=== PATIENT | female | born 2000 | race Caucasian/White ===

== ENCOUNTER → 2022-06-07 11:53 | Outpatient (CLI) | payer OTHER, SELFPAY ==
[2022-06-07 13:56] LABS: HCG,Quantitative 725 mIU/ml (0-5.42)
== END ==
PROVIDERS: Visit Provider Obstetrics & Gynecology
DX: N92.6 Irregular menstruation, unspecified (principal)
CPT/HCPCS: 36415; 84702

== ENCOUNTER 2022-06-12 01:09 | Emergency (ER) | payer OTHER, SELFPAY ==
[2022-06-12 01:10] VITALS: BP 152/87; PULSE 108; RESP 16; TEMP 36.8; O2SAT 100; BMI 33.5
[2022-06-12 01:28] VITALS: BMI 33.5
[2022-06-12 01:49] LABS: Microscopic, Urine URINE MICROSCOPIC (MICROSCOPIC)
[2022-06-12 01:54] LABS: Basophils # 0.1 K/mm3 (0-0.2); Basophils % 0.8 % (0.1-2.0); Eosinophils # 0.1 K/mm3 (0.0-0.4); Hematocrit 41.1 % (37.0-47.0); Hemoglobin 13.9 g/dL (12.2-16.2); Lymphocytes # 2.6 K/mm3 (0.7-4.5); Lymphocytes % 23.8 % (10-50); Mean Corpuscular HGB Conc 33.9 g/dL (31.8-35.4); Mean Corpuscular Hemoglobin 27.6 pg (27.0-31.2); Mean Corpuscular Volume 81.7 fl (81-99); Mean Platelet Volume 7.9 fl (7.4-10.4); Monocytes # 0.6 K/mm3 (0.1-1.0); Monocytes % 5.8 % (1.7-9.3); Neutrophils # 7.4 K/mm3 (1.8-7.8); Neutrophils % 68.6 % (37.0-80.0); Platelet Count 382 K/mm3 (142-424); Red Blood Count 5.03 M/mm3 (4.20-5.40); Red Cell Distribution Width 14.5 % (11.5-17.5); White Blood Count 10.7 K/mm3 (4.8-10.8)
[2022-06-12 02:05] LABS: HCG Qualitative, Serum Positive (Negative)
[2022-06-12 02:07] LABS: Appearance,Urine CLEAR (Clear); Bilirubin,Urine Negative (Negative); Blood, Urine 2+ (Negative); Chloride 108 mmol/L (98-107); Color,Urine YELLOW (Yellow); Glucose,Urine (UA) Negative (Negative); Ketones,Urine Negative (Negative); Leukocyte Esterase,Urine Negative (Negative); Nitrate,Urine Negative (Negative); Protein,Urine Negative (Negative); Specific Gravity, Urine >= 1.030 (1.005-1.030); Urobilinogen,Urine 0.2 EU/dl (0.2)
[2022-06-12 02:08] LABS: Sodium 138 mmol/L (136-145)
[2022-06-12 02:09] LABS: Amylase 78 U/L (30-110); Lipase 105 U/L (23-300)
[2022-06-12 02:10] LABS: Alanine Aminotransferase 20 U/L (12-78); Albumin Level 4.2 g/dl (3.5-5.0); Alkaline Phosphatase 86 U/L (38-126); Aspartate Amino Transferase 27 U/L (14-36); Bilirubin,Total 0.3 mg/dl (0.2-1.3); Blood Urea Nitrogen 7 mg/dl (7-17); Creatinine Clearance Estimated 201 mL/min (50-200); Estimated Glomerular Filt Rate 126 ml/min (>60); GFR (African American) 153 ML/MIN (>60)
[2022-06-12 02:11] LABS: Albumin/Globulin Ratio 1.4 (1.1-1.8); Carbon Dioxide 21 mmol/L (22.0-30.0); Total Protein,Serum 7.2 g/dl (6.3-8.2)
[2022-06-12 02:14] LABS: RBC,Urine Occasional #/hpf (0-3)
--- NOTE | 2022-06-12 02:18 | US_ITS ---
PROCEDURE INFORMATION: Exam: US , Transvaginal Exam date and time: 06/12/2022 3:13 AM Age: 21 years old Clinical indication: Lmp or gestational age (in weeks): Lmp 04/29/2022; Other: Light spotting seen tonight; ; Additional info: Bleeding, 4-5 wk TECHNIQUE: Imaging protocol: Real-time transvaginal obstetrical ultrasound of the maternal pelvis with image documentation. Transvaginal imaging was used for better evaluation of the fetus, adnexa, and/or cervix. COMPARISON: No relevant prior studies available. FINDINGS: Gestation: No definite pole or yolk sac identified within the gestational sac at this time, possibly secondary to early gestational age. BIOMETRY: Mean sac diameter: Single intrauterine gestational sac, with mean sac diameter measuring 4.5 mm, which is too small for estimation of gestational age. MATERNAL: Cervix: Cervical nabothian cyst. Right ovary/adnexa: Right ovary normal in appearance and measures 1.6 x 1.2 x 1.0 cm. Normal right ovarian vascularity. Left ovary/adnexa: Left ovary normal in appearance and measures 1.6 x 1.1 x 1.2 cm. Normal left ovarian vascularity. Intraperitoneal space: Small amount of free fluid within the cul-de-sac. IMPRESSION: Probable early intrauterine gestational sac, without visible pole or yolk sac. Gestational sac is too small for estimation of gestational age. Recommend continued beta HCG measurements and follow-up ultrasound as indicated.
--- NOTE | 2022-06-12 02:27 | PC.NURSE ---
Called radiology to notify to need for transvag u/s (OB). Lashanda is on-call and was notified
[2022-06-12 02:28] LABS: HCG,Quantitative 449 mIU/ml (0-5.42)
--- NOTE | 2022-06-12 02:45 | PC.NURSE ---
Pt &SO updated on POC and estimated wait time for u/s tech and reading. SO asking for IV to be removed from pt, updated that if there is a need for a procedure, medication, or surgery we would need to place another IV. They stated it was ok to leave at this time. SO concerned that u/s would be male, educated that a female radiology practitioner assistant will be performing u/s. [place] offered, refused again at this time.
[2022-06-12 02:52] LABS: Anion Gap 12.6 mEq/L (5-15); Calcium 8.9 mg/dl (8.4-10.2); Glucose 104 mg/dl (74-100); Potassium 3.6 mmoL/L (3.5-5.1)
--- NOTE | 2022-06-12 03:07 | PC.NURSE ---
pt taken for u/s at this time via wheelchair, SO accompanied pt to u/s
--- NOTE | 2022-06-12 03:40 | PC.NURSE ---
pt back from u/s
--- NOTE | 2022-06-12 05:02 | HMH.EDPREG ---
ED Disposition Clinical Impression: Qualifiers: Weeks of gestation: less than 8 weeks Qualified Code(s): Z3A.01 - Less than 8 weeks gestation of Disposition: Home, Self-Care Condition on Discharge: Fair Instructions: Threatened Miscarriage Additional Instructions: dory pompa today Referrals: Provider,Referral, [Primary Care Provider] - Priya Harvey DO [Physician] - - Critical Care Critical Care Time: No Attestation: On 06/12/22, the high probability of a clinically significant, sudden or life threatening deterioration of the following system(s) required my full and direct attention, intervention and personal management. The time I documented below is in addition to time spent performing reported procedures but includes the following listed in this critical care notation. Medical Decision Making - Medical Records Medical records reviewed: Yes: I reviewed the patient's medical records. - [place] Inquiry Pt receiving controlled substance: No Vital Signs: 06/12/22 01:10 Temperature 98.3 F Temperature Source Oral Pulse Rate [Left] 108 H Respiratory Rate 16 Blood Pressure [Right Arm] 152/87 H Blood Pressure Mean [Right Arm] 108 02 Sat by Pulse Oximetry 100 Oxygen Delivery Method Room Air - Lab Data Lab results reviewed: Yes: I reviewed the patient's lab results. Lab Results 06/12/22 01:25: Urine Color Yellow, Urine Appearance Clear, Urine pH 6.0, Ur Specific [place] >= 1.030, Urine Protein Negative, Urine Glucose (UA) Negative, Urine Ketones Negative, Urine Blood 2+, Urine Nitrate Negative, Urine Bilirubin Negative, Urine Urobilinogen 0.2, Ur Leukocyte Esterase Negative, Urine RBC Occasional, Urine WBC None, Ur Squamous Epith Cells 3-5, Urine Bacteria None 06/12/22 01:25: WBC 10.7, RBC 5.03, Hgb 13.9, Hct 41.1, MCV 81.7, MCH 27.6, MCHC 33.9, RDW 14.5, Plt Count 382, MPV 7.9, Neut % (Auto) 68.6, Lymph % (Auto) 23.8, [place] % (Auto) 5.8, Eos % (Auto) 1.0, Baso % (Auto) 0.8, Neut # (Auto) 7.4, Lymph # (Auto) 2.6, [place] # (Auto) 0.6, Eos # (Auto) 0.1, Baso # (Auto) 0.1 06/12/22 01:25: Sodium 138, Potassium 3.6, Chloride 108 H, Carbon Dioxide 21 L, Anion Gap 12.6, BUN 7, Creatinine 0.60, Estimated Creat Clear 201, Estimated GFR 126, Est GFR ( Amer) 153, Glucose 104 H, Calcium 8.9, Total Bilirubin 0.3, AST 27, ALT 20, Alkaline Phosphatase 86, Total Protein 7.2, Albumin 4.2, Globulin 3.0, Albumin/Globulin Ratio 1.4, HCG, Quant 449 H 06/12/22 01:25: Serum HCG, Qual Positive 06/12/22 01:25: Blood Type O Positive 06/12/22 01:25: Amylase 78, Lipase 105 Result diagrams: 06/12/22 01:25 06/12/22 01:25 - US Data US Images: Pelvis ED US Reviewed: Yes: I have viewed radiologist's interpretation Findings Narrative: see report Medical Decision Narrative: early iup bbut beta lower and will need to see ob today - has appt at 1300 HPI - General Chief complaint: Vaginal Bleeding Stated complaint: 4-5 weeks pregant; bleeding Time Seen by Provider: 06/12/22 05:02 Mode of Arrival: Ambulatory Source of Information: Patient, Medical Record Limitations: No Limitations Description of Symptoms (Recalled from ER Triage Doc. by RN): pt stated that she is confirmed on 05/27/22 pt LMP was 04/29/2022 pt states she is having extremely light bleed. pt states that she can only see trace pink when she wipes only - History of Present Illness HPI Narrative: vag spotting blood with wiping - about 5 weeks preg MD Complaint: vaginal bleeding Onset (ago): hour(s) Consistency: intermittent Severity: mild : Yes Date of Last Menstrual Period: 04/22/2022 care: followed by OB - Related Data Blood Type: O (+) positive Home Medications Medication Instructions Recorded Confirmed No122/Iron/Folic Acid 1 each PO DAILY 06/12/22 06/12/22 [ Multi Tablet] Allergies Allergy/AdvReac Type Severity Reaction Status Date / Time No Known Allergies All
[2022-06-12 05:12] VITALS: BP 132/88; PULSE 87; RESP 18; TEMP 36.8; O2SAT 98
== END 2022-06-12 05:18 | disposition home or self-care (01) ==
PROVIDERS: Emergency Provider Emergency Medicine
DX: O20.9 Hemorrhage in early pregnancy, unspecified (principal); Z3A.08 8 weeks gestation of pregnancy
CPT/HCPCS: 76817; 80053; 81001; 82150; 83690; 84702; 84703; 85025; 86900; 86901; 99283

== ENCOUNTER → 2022-06-15 11:40 | Outpatient (CLI) | payer OTHER, SELFPAY | PROVIDERS: Visit Provider Obstetrics & Gynecology | DX: Z34.90 Encounter for supervision of normal pregnancy, unspecified, unspecified trimester (principal) ==

== ENCOUNTER → 2022-06-17 16:41 | Outpatient (CLI) | payer OTHER, SELFPAY ==
[2022-06-17 11:34] LABS: HCG,Quantitative 42 mIU/ml (0-5.42)
== END ==
PROVIDERS: Visit Provider Obstetrics & Gynecology
DX: O02.1 Missed abortion (principal)
CPT/HCPCS: 36415; 84702

== ENCOUNTER → 2022-07-24 10:04 | Outpatient (CLI) | payer OTHER, SELFPAY ==
[2022-07-24 10:58] LABS: HCG,Quantitative 1536 mIU/ml (0-5.42)
== END ==
PROVIDERS: Visit Provider Obstetrics & Gynecology
DX: K08.129 Complete loss of teeth due to periodontal diseases, unspecified class (principal)
CPT/HCPCS: 36415; 84702

== ENCOUNTER → 2022-07-29 08:14 | Outpatient (CLI) | payer OTHER, SELFPAY ==
[2022-07-29 09:25] LABS: HCG,Quantitative 7010 mIU/ml (0-5.42)
[2022-07-30 08:31] LABS: Progesterone 7.5 ng/mL (.)
== END ==
PROVIDERS: Visit Provider Obstetrics & Gynecology
DX: Z34.90 Encounter for supervision of normal pregnancy, unspecified, unspecified trimester (principal); Z3A.01 Less than 8 weeks gestation of pregnancy
CPT/HCPCS: 36415; 84144; 84702

== ENCOUNTER → 2022-08-01 12:01 | Outpatient (CLI) | payer OTHER, SELFPAY ==
[2022-08-01 13:28] LABS: HCG,Quantitative 13587 mIU/ml (0-5.42)
[2022-08-02 09:15] LABS: Progesterone 10.3 ng/mL (.)
== END ==
PROVIDERS: Visit Provider Obstetrics & Gynecology
DX: Z34.90 Encounter for supervision of normal pregnancy, unspecified, unspecified trimester (principal); Z3A.01 Less than 8 weeks gestation of pregnancy
CPT/HCPCS: 36415; 84144; 84702

== ENCOUNTER → 2022-08-22 09:04 | Outpatient (CLI) | payer OTHER, SELFPAY ==
[2022-08-22 09:48] LABS: Basophils % 0.4 % (0.1-2.0); Eosinophils # 0.1 K/mm3 (0.0-0.4); Eosinophils % 0.8 % (0.1-12.0); Hematocrit 38.3 % (37.0-47.0); Hemoglobin 12.5 g/dL (12.2-16.2); Lymphocytes # 2.2 K/mm3 (0.7-4.5); Mean Corpuscular HGB Conc 32.7 g/dL (31.8-35.4); Mean Corpuscular Hemoglobin 27.8 pg (27.0-31.2); Mean Corpuscular Volume 85.1 fl (81-99); Mean Platelet Volume 8.2 fl (7.4-10.4); Monocytes # 0.5 K/mm3 (0.1-1.0); Monocytes % 4.9 % (1.7-9.3); Neutrophils # 7.2 K/mm3 (1.8-7.8); Platelet Count 341 K/mm3 (142-424); Red Cell Distribution Width 15.7 % (11.5-17.5)
[2022-08-23 07:12] LABS: HIV Screen 4th Generation wRfx Non Reactive (Non Reactive); Hepatitis B Surface Antigen Negative (Negative); Hepatitis C Antibody <0.1 s/co ratio (0.0-0.9); Rubella Antibodies, IgG <0.90 index (Immune >0.99)
[2022-08-23 11:20] LABS: Rapid Plasma Reagin Ab Titer Non Reactive (NonRea<1:1)
== END ==
PROVIDERS: Visit Provider Obstetrics & Gynecology
DX: Z34.90 Encounter for supervision of normal pregnancy, unspecified, unspecified trimester (principal)
CPT/HCPCS: 36415; 85025; 86592; 86703; 86762; 86850; 87086; 87340; 87380; G0432

== ENCOUNTER 2022-11-04 20:21 | Outpatient (CLI) | payer OTHER, SELFPAY ==
[2022-11-04 20:49] VITALS: BMI 36.5
[2022-11-04 20:54] VITALS: BP 138/94; PULSE 99; RESP 18; TEMP 36.7; O2SAT 99; BMI 36.5
[2022-11-04 21:01] LABS: Microscopic, Urine URINE MICROSCOPIC (MICROSCOPIC)
[2022-11-04 21:06] LABS: Appearance,Urine CLEAR (Clear); Bilirubin,Urine Negative (Negative); Blood, Urine Negative (Negative); Color,Urine YELLOW (Yellow); Glucose,Urine (UA) Negative (Negative); Ketones,Urine Negative (Negative); Leukocyte Esterase,Urine Negative (Negative); Nitrate,Urine Negative (Negative); Protein,Urine Negative (Negative); Specific Gravity, Urine 1.025 (1.005-1.030); Urobilinogen,Urine 0.2 EU/dl (0.2)
[2022-11-04 21:17] LABS: Barbiturates Screen,Urine Negative ng/ml (<200)
[2022-11-04 21:18] LABS: Benzodiazepines Screen,Urine Negative ng/ml (<200)
[2022-11-04 21:19] LABS: Amphetamine/Metha Screen,Urine Negative ng/ml (<1000); Cannabinoid Screen,Urine Negative ng/ml (<50)
[2022-11-04 21:20] LABS: Cocaine Screen,Urine Negative ng/ml (<300)
[2022-11-04 21:21] LABS: Methadone Screen,Urine Negative ng/ml (<300); Opiate Screen,Urine Negative ng/ml (<300)
[2022-11-04 21:22] LABS: Phencyclidine Screen,Urine Negative ng/ml (<25)
[2022-11-04 21:44] LABS: Squamous Epithelial Cell,Urine Occasional #/hpf (0-5); WBC,Urine Occasional #/hpf (0-3)
== END 2022-11-04 21:45 | disposition home or self-care (01) ==
LOC: OBOUT 20:22 → OB 20:23
PROVIDERS: Visit Provider Obstetrics & Gynecology
DX: O46.8X2 Other antepartum hemorrhage, second trimester (principal); Z3A.19 19 weeks gestation of pregnancy
CPT/HCPCS: 80305; 81001; G0463

== ENCOUNTER → 2022-11-07 12:52 | Outpatient (CLI) | payer OTHER, SELFPAY ==
--- NOTE | 2022-11-07 12:52 | US_ITS ---
PROCEDURE INFORMATION: Exam: US Plus Detailed Evaluation, First Gestation, Transabdominal Exam date and time: 11/07/2022 2:12 PM Age: 22 years old Clinical indication: Screening exam; Routine US, uterus; Additional info: 20 week anatomy scan TECHNIQUE: Imaging protocol: Real time transabdominal uterus, including and maternal evaluation plus detailed anatomic examination with image documentation. First gestation. COMPARISON: US OB TRANSVAGINAL 06/12/2022 3:13 AM FINDINGS: Gestation: There is a single intrauterine gestational sac containing a fetus. heart rate: heart rate is 135 bpm. presentation: Cephalic presentation. Placenta: Placental is fundal. Amniotic fluid: Amniotic fluid is normal for gestational age. ANATOMY: brain parenchyma: Unremarkable corpus callosum: Obscured by position midline falx: Normal septum pellucidum: Normal cerebellum: Normal lateral ventricles: Normal choroid plexus: Normal cisterna magna: Obscured by position orbits: Obscured by position upper lip and nose: Normal palate, maxilla, mandible, and tongue: Obscured by position coronal face including nose, lips and lens: Obscured by position ear position and size: Obscured by position Neck: Obscured by position lungs: Obscured by position heart four-chamber view, heart size and position: Normal three-vessel and trachea view: Obscured by position three-vessel view: Obscured by position right ventricular outflow tract: Obscured by position left ventricular outflow tract: Normal aortic arch: Normal superior and inferior vena cava: Obscured by position ribs: Normal diaphragm: Obscured by position liver: Obscured by position gallbladder: Obscured by position spleen: Obscured by position adrenal glands: Obscured by position kidneys: Obscured by position renal arteries: Obscured by position stomach: Obscured by position urinary bladder: Obscured by position Spine shape and curvature: Normal integrity soft tissue overlying spine: Normal Umbilical cord insertion site into the abdomen: Normal Umbilical cord vessel number: Normal three-vessel cord arms and hands: Normal legs and feet: Normal abdominal wall: Normal external genitalia: Normal BIOMETRY: Gestational age (AUA): 20 weeks 3 days Estimated due date (AUA): 03/26/2023 Estimated weight: Not calculated Biparietal diameter (BPD): 4.7 cm Head circumference (HC): Not measured Abdominal circumference (AC): Not measured Humerus length (HL): 3.1 cm Femur length (FL): Femur length 3.2 cm. MATERNAL ANATOMY: Uterus: Unremarkable. Cervix: The cervix is long and closed measuring 4 cm. Right ovary/adnexa: Obscured by lack of adequate acoustic window. Left ovary/adnexa: Obscured by lack of adequate acoustic window. Intraperitoneal space: No intraperitoneal free fluid. Notes: This detailed survey study is focused on known or suspected anomalies. IMPRESSION: Single live intrauterine with a gestational age by ultrasound of 20 weeks 3 days.
== END ==
PROVIDERS: PCP Obstetrics & Gynecology; Visit Provider Obstetrics & Gynecology
DX: Z34.90 Encounter for supervision of normal pregnancy, unspecified, unspecified trimester (principal); Z3A.20 20 weeks gestation of pregnancy
CPT/HCPCS: 76811

== ENCOUNTER → 2022-12-13 15:06 | Outpatient (CLI) | payer OTHER, SELFPAY ==
[2022-12-13 15:36] LABS: Basophils # 0.1 K/mm3 (0-0.2); Basophils % 0.5 % (0.1-2.0); Eosinophils # 0.1 K/mm3 (0.0-0.4); Hematocrit 38.3 % (37.0-47.0); Hemoglobin 12.5 g/dL (12.2-16.2); Lymphocytes # 1.8 K/mm3 (0.7-4.5); Mean Corpuscular HGB Conc 32.7 g/dL (31.8-35.4); Mean Corpuscular Hemoglobin 27.3 pg (27.0-31.2); Mean Corpuscular Volume 83.7 fl (81-99); Mean Platelet Volume 7.8 fl (7.4-10.4); Monocytes # 0.4 K/mm3 (0.1-1.0); Monocytes % 3.3 % (1.7-9.3); Neutrophils # 9.7 K/mm3 (1.8-7.8); Neutrophils % 80.3 % (37.0-80.0); Platelet Count 368 K/mm3 (142-424); Red Blood Count 4.57 M/mm3 (4.20-5.40); Red Cell Distribution Width 14.3 % (11.5-17.5); White Blood Count 12.1 K/mm3 (4.8-10.8)
[2022-12-13 15:47] LABS: Glucose,Fasting 94 mg/dl (74-100)
[2022-12-13 17:42] LABS: Glucose 1 Hour 121 mg/dL (74-100)
== END ==
PROVIDERS: Visit Provider Obstetrics & Gynecology
DX: Z34.90 Encounter for supervision of normal pregnancy, unspecified, unspecified trimester (principal); Z3A.17 17 weeks gestation of pregnancy
CPT/HCPCS: 36415; 82951; 85025

== ENCOUNTER 2023-02-08 13:33 | Outpatient (CLI) | payer OTHER, SELFPAY ==
[2023-02-08 13:49] VITALS: BMI 41.1
[2023-02-08 14:04] VITALS: BP 121/78; PULSE 82; RESP 18; TEMP 36.8; O2SAT 100; BMI 41.1
[2023-02-08 14:10] LABS: Microscopic, Urine URINE MICROSCOPIC (MICROSCOPIC)
[2023-02-08 14:19] LABS: Appearance,Urine SL CLOUDY (Clear); Bilirubin,Urine Negative (Negative); Blood, Urine Negative (Negative); Color,Urine YELLOW (Yellow); Glucose,Urine (UA) Negative (Negative); Ketones,Urine Negative (Negative); Leukocyte Esterase,Urine TRACE (Negative); Nitrate,Urine Negative (Negative); Protein,Urine Negative (Negative); Specific Gravity, Urine 1.025 (1.005-1.030); Urobilinogen,Urine 0.2 EU/dl (0.2)
[2023-02-08 14:32] LABS: Benzodiazepines Screen,Urine Negative ng/ml (<200)
[2023-02-08 14:33] LABS: Barbiturates Screen,Urine Negative ng/ml (<200)
[2023-02-08 14:34] LABS: Cannabinoid Screen,Urine Negative ng/ml (<50); Cocaine Screen,Urine Negative ng/ml (<300)
[2023-02-08 14:35] LABS: Methadone Screen,Urine Negative ng/ml (<300)
[2023-02-08 14:36] LABS: Opiate Screen,Urine Negative ng/ml (<300); Phencyclidine Screen,Urine Negative ng/ml (<25)
[2023-02-08 14:39] LABS: Bacteria,Urine 1+ /lpf; Squamous Epithelial Cell,Urine 20-50 #/hpf (0-5)
[2023-02-08 14:41] LABS: Amphetamine/Metha Screen,Urine Negative ng/ml (<1000)
== END 2023-02-08 14:55 | disposition home or self-care (01) ==
LOC: OBOUT 13:37 → OB 13:37
PROVIDERS: Visit Provider Obstetrics & Gynecology
DX: O26.893 Other specified pregnancy related conditions, third trimester (principal); Z3A.33 33 weeks gestation of pregnancy
CPT/HCPCS: 59025; 80305; 81001; G0463

== ENCOUNTER → 2023-02-28 16:22 | Outpatient (CLI) | payer OTHER, SELFPAY | PROVIDERS: Visit Provider Obstetrics & Gynecology | DX: Z34.90 Encounter for supervision of normal pregnancy, unspecified, unspecified trimester (principal) | CPT/HCPCS: 86403 ==

== ENCOUNTER → 2023-03-14 09:19 | Outpatient (CLI) | payer OTHER, SELFPAY ==
[2023-03-14 09:50] LABS: Basophils % 0.2 % (0.1-2.0); Eosinophils # 0.1 K/mm3 (0.0-0.4); Eosinophils % 0.5 % (0.1-12.0); Hematocrit 37.2 % (37.0-47.0); Hemoglobin 12.2 g/dL (12.2-16.2); Lymphocytes # 2.1 K/mm3 (0.7-4.5); Lymphocytes % 15.9 % (10-50); Mean Corpuscular HGB Conc 32.8 g/dL (31.8-35.4); Mean Corpuscular Hemoglobin 25.6 pg (27.0-31.2); Mean Corpuscular Volume 77.9 fl (81-99); Mean Platelet Volume 8.4 fl (7.4-10.4); Monocytes # 0.7 K/mm3 (0.1-1.0); Monocytes % 4.9 % (1.7-9.3); Neutrophils # 10.5 K/mm3 (1.8-7.8); Neutrophils % 78.5 % (37.0-80.0); Platelet Count 386 K/mm3 (142-424); Red Blood Count 4.78 M/mm3 (4.20-5.40); Red Cell Distribution Width 15.5 % (11.5-17.5); White Blood Count 13.4 K/mm3 (4.8-10.8)
[2023-03-14 10:52] LABS: Chloride 107 mmol/L (98-107); Potassium 4.1 mmoL/L (3.5-5.1); Sodium 136 mmol/L (136-145)
[2023-03-14 10:55] LABS: Alanine Aminotransferase 17 U/L (12-78); Albumin Level 3.3 g/dl (3.5-5.0); Albumin/Globulin Ratio 1.1 (1.1-1.8); Alkaline Phosphatase 154 U/L (38-126); Anion Gap 12.1 mEq/L (5-15); Aspartate Amino Transferase 23 U/L (14-36); Bilirubin,Total 0.2 mg/dl (0.2-1.3); Blood Urea Nitrogen 9 mg/dl (7-17); Calcium 9.1 mg/dl (8.4-10.2); Carbon Dioxide 21 mmol/L (22.0-30.0); Estimated Glomerular Filt Rate 125 ml/min (>60); GFR (African American) 151 ML/MIN (>60); Globulin 2.9 g/dL (1.3-3.2); Glucose 95 mg/dl (74-100); Total Protein,Serum 6.2 g/dl (6.3-8.2)
== END ==
PROVIDERS: Visit Provider Obstetrics & Gynecology
DX: Z01.818 Encounter for other preprocedural examination (principal)
CPT/HCPCS: 36415; 80053; 85025; 86850

== ENCOUNTER 2023-03-18 04:46 | Inpatient (IN) | payer OTHER, SELFPAY ==
[2023-03-18] VITALS (10 sets, daily range): BP systolic 120–146; BP diastolic 61–88; PULSE 94–120; RESP 12–19; TEMP 36.6–37.1; O2SAT 98–100; BMI 43.4
[2023-03-18 06:03] LABS: Coronavirus 19, PCR Not Detected (NotDetected); Influenza A, PCR Not Detected (NotDetected); Influenza B, PCR Not Detected (NotDetected); Microscopic, Urine URINE MICROSCOPIC (MICROSCOPIC)
[2023-03-18 06:10] LABS: Chloride 102 mmol/L (98-107); Sodium 134 mmol/L (136-145)
[2023-03-18 06:11] LABS: Appearance,Urine CLEAR (Clear); Color,Urine YELLOW (Yellow); Specific Gravity, Urine 1.025 (1.005-1.030)
[2023-03-18 06:12] LABS: Bilirubin,Urine Negative (Negative); Blood, Urine Negative (Negative); Glucose,Urine (UA) Negative (Negative); Ketones,Urine Negative (Negative); Leukocyte Esterase,Urine Negative (Negative); Nitrate,Urine Negative (Negative); Protein,Urine Negative (Negative); Urobilinogen,Urine 0.2 EU/dl (0.2)
[2023-03-18 06:13] LABS: Alanine Aminotransferase 18 U/L (12-78); Albumin Level 3.5 g/dl (3.5-5.0); Albumin/Globulin Ratio 1.1 (1.1-1.8); Alkaline Phosphatase 166 U/L (38-126); Aspartate Amino Transferase 23 U/L (14-36); Bilirubin,Total 0.3 mg/dl (0.2-1.3); Blood Urea Nitrogen 7 mg/dl (7-17); Carbon Dioxide 19 mmol/L (22.0-30.0); Creatinine Clearance Estimated 122 mL/min (50-200); Estimated Glomerular Filt Rate 125 ml/min (>60); GFR (African American) 151 ML/MIN (>60); Globulin 3.3 g/dL (1.3-3.2); Total Protein,Serum 6.8 g/dl (6.3-8.2)
[2023-03-18 06:14] LABS: Calcium 8.9 mg/dl (8.4-10.2); Glucose 89 mg/dl (74-100)
[2023-03-18 06:15] LABS: Basophils % 0.2 % (0.1-2.0); Eosinophils % 0.3 % (0.1-12.0); Hematocrit 36.2 % (37.0-47.0); Hemoglobin 11.7 g/dL (12.2-16.2); Lymphocytes # 2.5 K/mm3 (0.7-4.5); Lymphocytes % 19.3 % (10-50); Mean Corpuscular HGB Conc 32.2 g/dL (31.8-35.4); Mean Corpuscular Volume 77.5 fl (81-99); Mean Platelet Volume 8.3 fl (7.4-10.4); Monocytes # 0.6 K/mm3 (0.1-1.0); Monocytes % 4.5 % (1.7-9.3); Neutrophils # 9.7 K/mm3 (1.8-7.8); Neutrophils % 75.6 % (37.0-80.0); Platelet Count 360 K/mm3 (142-424); Red Blood Count 4.67 M/mm3 (4.20-5.40); Red Cell Distribution Width 15.7 % (11.5-17.5); White Blood Count 12.8 K/mm3 (4.8-10.8)
[2023-03-18 06:24] LABS: Amphetamine/Metha Screen,Urine Negative ng/ml (<1000)
[2023-03-18 06:25] LABS: Barbiturates Screen,Urine Negative ng/ml (<200)
[2023-03-18 06:26] LABS: Benzodiazepines Screen,Urine Negative ng/ml (<200); Cannabinoid Screen,Urine Negative ng/ml (<50)
[2023-03-18 06:27] LABS: Cocaine Screen,Urine Negative ng/ml (<300)
[2023-03-18 06:28] LABS: Methadone Screen,Urine Negative ng/ml (<300)
[2023-03-18 06:29] LABS: Opiate Screen,Urine Negative ng/ml (<300); Phencyclidine Screen,Urine Negative ng/ml (<25)
[2023-03-18 06:36] LABS: Bacteria,Urine 1+ /lpf
--- NOTE | 2023-03-18 07:17 | EXP.OB.APHP ---
OB - H&P: HPI Antepartum History of Present Illness Chief complaint: Scheduled primary History of present illness: Ms Radha Hercules is a 22 yo at 39w0d who presents to [facility] for scheduled primary secondary to genital condyloma around introitus and on perineum. She has had good care. Admits to occasional contractions. Baby is very active. History of Present Criteria for establishing EDC:: LMP confirmed by 1st trimester US care: good care Ultrasounds: normal mid trimester US Obstetrical complications: none Medical complications: none Labs Blood type: O (+) positive Rubella: nonimmune RPR/VDRL: nonreactive GBS status: negative HBsAG: negative PFSH [facility] Disclaimer: The information contained in this section may have been updated after the patient was seen, as this information can be updated by other users. Medical History (Updated 03/18/23 @ 07:24 by Priya Harvey DO) Acid reflux Anxiety Condyloma acuminata of vulva in in third trimester Genital condyloma, female Maternal obesity affecting , antepartum Obesity (BMI 35.0-39.9 without comorbidity) with 39 completed weeks gestation Rubella non-immune status, antepartum Family History Other No significant family history Social History Smoking Status: Former smoker alcohol intake: never substance use type: denies use current occupational status: unemployed Travel in the last 8 weeks: None do you feel safe at home: Yes victim of physical abuse: No victim of emotional abuse: No victim of sexual abuse: No Review of Systems Review of Systems Review of systems:: pertinent systems reviewed and negative unless documented below Meds Home Medications and Allergies Home Medications Medication Instructions Recorded Confirmed Type prenat.vits,rika,eos-rwcd-bcfaa 1 tab PO DAILY Supplement 12/12/22 03/18/23 History New Prescriptions to Start Prescriptions: Allergies Allergy/AdvReac Type Severity Reaction Status Date / Time No Known Allergies Allergy Verified 03/18/23 06:15 OB - H&P: Exam Physical Exam Vital signs: Temp Pulse Resp BP Pulse Ox 98.8 F 108 H 19 140/88 99 03/18/23 06:15 03/18/23 06:15 03/18/23 06:15 03/18/23 06:15 03/18/23 06:15 Constitutional no acute distress Routine HEENT Exam Head: Present normocephalic and atraumatic Eye: Absent conjunctivae pink ENT: Present mucous membranes moist Routine Neck Exam Present full ROM Routine Respiratory Exam Present CTA bilaterally and normal respiratory effort Routine Cardiovascular Exam Present RRR Routine Abdominal Exam Present soft (Gravid); Absent tenderness Routine Rectal Exam Patient deferred: visual exam Routine Exam Patient deferred: external exam Routine Extremities Exam Present edema (+1 bilateral lower extremity edema) and full ROM; Absent calf tenderness Routine Neurological Exam Present alert, oriented X3 and moving all extremities Routine Psychiatric Exam Present normal affect and cooperative Detailed Labor and Delivery Exam Baseline heart rate: 130 monitor accelerations: Present monitor decelerations: None intermediate card tender variability: Moderate (11-25) OB - Results Labs Labs: Short CBC 03/18/23 Range/Units 05:50 WBC 12.8 H (4.8-10.8) K/mm3 Hgb 11.7 L (12.2-16.2) g/dL Hct 36.2 L (37.0-47.0) % Plt Count 360 (142-424) K/mm3 BMP 03/18/23 05:50 Sodium 134 L Potassium 4.0 Chloride 102 Carbon Dioxide 19 L BUN 7 Creatinine 0.60 Glucose 89 Calcium 8.9 Liver Function 03/18/23 Range/Units 05:50 Total Bilirubin 0.3 (0.2-1.3) mg/dl AST 23 (14-36) U/L ALT 18 (12-78) U/L Alkaline Phosphatase 166 H (38-126) U/L Albumin 3.5 (3.5-5.0) g/dl Urine 03/18/23 Range/Units
[2023-03-18 08:03] LABS: Cord Blood PH 7.31 (7.35-7.45)
--- NOTE | 2023-03-18 08:41 | EXP.ANES.CKL ---
[facility] Disclaimer: The information contained in this section may have been updated after the patient was seen, as this information can be updated by other users. Medical History (Updated 03/18/23 @ 07:24 by Priya Harvey DO) Acid reflux Anxiety Condyloma acuminata of vulva in in third trimester Genital condyloma, female Maternal obesity affecting , antepartum Obesity (BMI 35.0-39.9 without comorbidity) with 39 completed weeks gestation Rubella non-immune status, antepartum Family History Other No significant family history Social History Smoking Status: Former smoker alcohol intake: never substance use type: denies use current occupational status: unemployed Travel in the last 8 weeks: None do you feel safe at home: Yes victim of physical abuse: No victim of emotional abuse: No victim of sexual abuse: No [facility] Anesthesia Checklist Patient Identification Patient Identification: Verbal (Name & ) Structural Data Admitted From: Home Planned Operative Procedure/s: c/section Consent for Planned Operative Procedure(s) Verified: Yes Airway Assessment C-Spine Mobility Assessed: Yes TMJ Mobility Assessed: Yes Dentition: Good Dentition Neurological Assessment Level of Consciousness: Awake, Alert and Appropriate Anesthesia Plan Anesthesia Risk discussed: Yes Anesthesia Plan: Verified ASA Class: II Anesthesia Type: Spinal
--- NOTE | 2023-03-18 08:42 | EXP.ANES.I ---
[facility] Anesthesia Record Part I Anesthesia Record I Intake, IV Amount: 2,400 Estimated blood loss (mL): 600 Urine output (mL): 300 Blood Pressure: 126/86 SaO2: 98 Pulse Rate: 106 Respiratory Rate: 12 Temperature: 97.8 F Patient is:: Awake and Stable Stable to PACU at:: 08:40
--- NOTE | 2023-03-18 08:46 | EXP.OP.NOTE ---
Date of procedure: 03/18/23 Pre-op Diagnosis:: 1. IUP at 39 weeks 0 days 2. Condyloma acuminata of vulva and perineum 3. Maternal obesity 4. Rubella Non Immune 5. Anxiety Post-op Diagnosis:: 1. IUP at 39 weeks 0 days 2. Condyloma acuminata of vulva and perineum 3. Maternal obesity 4. Rubella Non Immune 5. Anxiety Procedure performed:: Primary Low Transverse Section Surgeon:: Priya Harvey DO Clipper Machine(s):: Ti Ding MD CLERICAL PROOFREADER:: Peter Mñuoz Anesthesia: spinal Estimated blood loss (mL): 600 Clinical Note:: Ms Radha Hercules is a 22 yo at 39w0d who presents to [facility] for scheduled primary secondary to genital condyloma around introitus and on perineum. She has had good care.? Operative findings:: 1. Live male baby (baby's name is Vladislav) weighing 7 lb 8 oz, APGARs 8, 9 2. Grossly normal appearing uterus, bilateral fallopian tubes and ovaries Operative note:: The risks, benefits and alternatives of the procedure were reviewed with the patient. Informed consent was obtained. Patient was taken to the operating room where spinal anesthesia was placed. The patient received 2 grams of Ancef preoperatively. Patient was placed in dorsal supine position with a leftward tilt. SCDs in place. Neely catheter was inserted and draining clear urine prior to the start of the procedure. heart tones were obtained. Patient was then prepped and draped in normal sterile fashion. Allis clamp test was performed to ensure adequate anesthesia. A Pfannenstiel skin incision was made 2 cm above pubic symphysis. This was carried through to underlying layer of fascia. Fascia was incised in midline, extended laterally with Jiang scissors. Superior aspect of fascial incision was grasped with two Yossi clamps, elevated up, and rectus muscle dissected off bluntly and sharply with Jiang scissors. The retcus muscle was then in the midline and the peritoneum was entered bluntly with a digit. Peritoneal incision was then extended superiorly and inferiorly with good visualization of the bladder. Stefano retractor was inserted. The lower uterine segment was incised in a transverse fashion. Clear amniotic fluid was noted. Head was delivered without difficulty. Remainder of body was delivered without difficulty. Mouth and nares were bulb suctioned. Spontaneous cry was noted. Delayed cord clamping was performed for 60 seconds. The umbilical cord was clamped and cut. The infant was handed to awaiting pediatric staff in stable condition. Dr. Norton was present. Apgars were 8(1 min), 9(5 min). Cord blood was obtained. Gentle traction on the umbilical cord and uterine fundal massage delivered the placenta. Placenta was intact. Uterus was cleared of all clots and debris with a moist laparotomy sponge. Corners of the uterine incision were grasped with Allis clamps. The uterine incision was reapproximated with # 1 Vicryl suture in a running, locked stitch. Second layer of the same stitch was used to imbricate the incision. Excellent hemostasis was noted. Posterior cul-de-sac was cleaned with moist laparotomy sponge. Gutters cleared of all clots and debris with a moist laparotomy sponge. Reinspection of the lower uterine segment demonstrated small amount of oozing. Gel foam was applied over uterine incision. Hemostasis was noted. At this point all instruments and sponges were removed from the pelvis.? The peritoneum was grasped with Lissett clamps x 3. The peritoneum was reapproximated with 0 Vicryl suture in a running stitch. The corners of the fascia were grasped with Yossi clamps, and the fascia was reapproximated with two # 1 Vicryl suture overlapped to the right of midline. The subcutaneous tissue was reapproximated with 3-0 Vicryl. The skin was reapproximated with 2-0 Stratafix suture. Steri strips and Telfa were placed over closed Pfannenstiel skin incision. At the end of the procedure, the uterus was firm with minimal vaginal bleeding. Patient tolerat
--- NOTE | 2023-03-18 09:46 | SUR.OPER ---
0757- Time of of viable infant. pH of cord blood 7.31
--- NOTE | 2023-03-18 09:51 | SUR.PHASEI ---
904- Report called to YUDELKA Ashley. 909- Patient transported to OB room 278 with assistance of YUDELKA Montelongo in stable condition. Bed locked and in lowest position. Dressing is clean dry and intact. Fundus and lochia assessed by YUDELKA Ashley in room. Patient left under the care of YUDELKA Ashley.
[2023-03-19 04:04] VITALS: BP 128/61; PULSE 90; RESP 17; TEMP 36.9; O2SAT 98
[2023-03-19 06:52] LABS: Basophils % 0.1 % (0.1-2.0); Eosinophils % 0.2 % (0.1-12.0); Hematocrit 29.5 % (37.0-47.0); Hemoglobin 9.6 g/dL (12.2-16.2); Lymphocytes # 1.8 K/mm3 (0.7-4.5); Lymphocytes % 12.7 % (10-50); Mean Corpuscular HGB Conc 32.4 g/dL (31.8-35.4); Mean Corpuscular Hemoglobin 25.9 pg (27.0-31.2); Mean Corpuscular Volume 79.9 fl (81-99); Mean Platelet Volume 8.8 fl (7.4-10.4); Monocytes # 0.6 K/mm3 (0.1-1.0); Monocytes % 4.3 % (1.7-9.3); Neutrophils % 82.7 % (37.0-80.0); Platelet Count 297 K/mm3 (142-424); Red Blood Count 3.69 M/mm3 (4.20-5.40); White Blood Count 14.5 K/mm3 (4.8-10.8)
[2023-03-19 08:33] VITALS: BP 122/56; PULSE 93; RESP 18; TEMP 36.7; O2SAT 99
--- NOTE | 2023-03-19 11:03 | EXP.ACUTE.PN ---
Subjective *Date: 03/19/23 *Time: 11:05 Interval history: POD # 1 s/p PLTCS She is resting comfortably in bedside chair. Pain is controlled. She is formula feeding. Lochia is appropriate. Voiding without difficulty and passing flatus. Tolerating regular diet and ambulating well ad angela. She admits to bilateral lower extremity swelling. No headaches, vision changes or dizziness. Denies fever/chills, chest pain and shortness of breath. Medical Exam Vital signs and Labs for Last 24 Hours: Vital Signs Temp Pulse Resp BP Pulse Ox 03/19/23 08:33 98.1 F 93 H 18 122/56 L 99 03/18/23 19:45 98.6 F 109 H 18 134/76 100 03/19/23 04:04 98.4 F 90 17 128/61 98 03/18/23 16:00 98.8 F 120 H 18 120/80 03/18/23 12:00 118 H 16 141/66 H Intake and Output 03/18/23 03/19/23 03/19/23 23:59 07:59 15:59 Output Total 200 / 200 300 / 300 Balance -200 / 2200 -300 / -300 Output: Output, Urine Amount 200 / 200 300 / 300 Laboratory Results - last 24 hr 03/19/23 06:45: WBC 14.5 H, RBC 3.69 L, Hgb 9.6 L, Hct 29.5 L, MCV 79.9 L, MCH 25.9 L, MCHC 32.4, RDW 16.0, Plt Count 297, MPV 8.8, Neut % (Auto) 82.7 H, Lymph % (Auto) 12.7, [place] % (Auto) 4.3, Eos % (Auto) 0.2, Baso % (Auto) 0.1, Neut # (Auto) 12.0 H, Lymph # (Auto) 1.8, [place] # (Auto) 0.6, Eos # (Auto) 0.0, Baso # (Auto) 0.0 I & O for Labs for Last 24 Hours: Intake & Output 03/16/23 03/17/23 03/18/23 03/19/23 23:59 23:59 23:59 23:59 Intake Total 2400 / 2400 Output Total 200 / 200 300 / 300 Balance 2200 / 2200 -300 / -300 Weight 245 lb Head: Present atraumatic and normocephalic ENT: Present normal exam Neck: Present normal inspection and full ROM Respiratory: Present CTA bilaterally and normal respiratory effort Cardiac: Present Reg Rate and Rhythm Rectal (female): Present deferred (female): Present deferred Extremities: Present full ROM and edema (+1 bilateral lower extremity edema); Absent tenderness or calf tenderness Neuro: Present alert, awake, oriented x 3 and moves all extremities Assessment and Plan *Assessment and plan (1) with 39 completed weeks gestation: Status: Acute Category: Medical Code(s): Z3A.39 - 39 weeks gestation of (2) S/P section: Status: Acute Category: Surgical Code(s): Z98.891 - History of uterine scar from previous surgery (3) Condyloma acuminata of vulva in in third trimester: Status: Acute Category: Medical Code(s): O98.313 - Other infections with a predominantly sexual mode of transmission complicating , third trimester; A63.0 - Anogenital (venereal) warts (4) Maternal obesity affecting , antepartum: Status: Acute Category: Medical Code(s): O99.210 - Obesity complicating , unspecified trimester (5) Rubella non-immune status, antepartum: Status: Acute Category: Medical Code(s): O09.899 - Supervision of other high risk pregnancies, unspecified trimester; Z28.39 - Other underimmunization status (6) Anxiety: Status: Acute Category: Medical Code(s): F41.9 - Anxiety disorder, unspecified (7) Acute blood loss anemia: Status: Acute Category: Medical Code(s): D62 - Acute posthemorrhagic anemia Plan Continue routine care Encouraged increased ambulation MMR before discharge Plan d/c home tomorrow, POD # 2
[2023-03-19 20:00] VITALS: BP 124/59; PULSE 110; RESP 17; TEMP 36.6; O2SAT 98
[2023-03-20 04:00] VITALS: BP 128/62; PULSE 108; RESP 17; TEMP 36.6; O2SAT 99
[2023-03-20 09:01] VITALS: BP 135/63; PULSE 108; RESP 18; TEMP 36.7; O2SAT 100
--- NOTE | 2023-03-20 09:24 | EXP.DC.SUM ---
General Admission date:: 03/18/23 Discharge date: 03/20/23 HPI HPI HPI: POD # 2 s/p PLTCS Feeling well. Pain controlled. She is formula feeding. Light lochia. Voiding without difficulty and passing flatus. She has had a BM. Tolerating regular diet. Ambulating well ad angela. Admits to lower extremity swelling. No headaches, vision changes, fever/chills, chest pain or shortness of breath. 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 She has had good care. She underwent primary low transverse section on 03/18/23. She delivered a live male baby (baby's name is Vladislav) weighing 7 lb 8 oz. APGARs 8, 9. EBL 600 mL. She did well postoperatively. Pain controlled. Light lochia. Formula feeding. Voiding without difficulty and passing flatus. + BM. She was tolerating regular diet and ambulating well ad angela. Vital signs stable, afebrile. Heart was regular rate and rhythm. Lungs clear to auscultation. She had + 2 bilateral lower extremity edema. No calf tenderness to palpation. Normal hospital course. Exam Data for Last 24 hours Vital signs and Labs for Last 24 Hours: Temp Pulse Resp BP Pulse Ox 98.1 F 108 H 18 135/63 100 03/20/23 09:01 03/20/23 09:01 03/20/23 09:01 03/20/23 09:01 03/20/23 09:01 I & O for Last 24 hours: Intake & Output 03/17/23 03/18/23 03/19/23 03/20/23 23:59 23:59 23:59 23:59 Intake Total 2400 / 2400 Output Total 200 / 200 300 / 300 Balance 2200 / 2200 -300 / -300 Weight 245 lb Constitutional Constitutional: no acute distress and cooperative *Routine HEENT Exam Head: Present normocephalic and atraumatic Eye: Absent conjunctivae pink ENT: Present mucous membranes moist and dentition normal *Routine Neck Exam Neck: Present full ROM *Routine Respiratory Exam Respiratory: Present CTA bilaterally and normal respiratory effort *Routine Cardiovascular Exam Cardiovascular: Present RRR *Routine Abdominal Exam Abdominal: Present soft and normoactive bowel sounds; Absent tenderness or distended Comments: Uterine fundus firm and below umbilicus; Pfannenstiel incision clean/dry/intact *Routine Rectal Exam Patient deferred: visual exam *Routine Exam Patient deferred: external exam *Routine Extremities Exam Extremities: Present edema (+2 bilateral lower extremity edema) and full ROM; Absent calf tenderness *Routine Neurological Exam Neurological: Present alert, oriented X3 and moving all extremities Routine Psychiatric Exam Psychiatric: Present normal affect and cooperative DS: Diagnosis Discharge Diagnosis (1) with 39 completed weeks gestation: Status: Acute (2) S/P section: Status: Acute (3) Condyloma acuminata of vulva in in third trimester: Status: Acute (4) Maternal obesity affecting , antepartum: Status: Acute (5) Rubella non-immune status, antepartum: Status: Acute (6) Anxiety: Status: Acute (7) Acute blood loss anemia: Status: Acute Meds Home Medications and Allergies Home Medications Medication Instructions Recorded Confirmed Type acetaminophen 325 mg tablet 975 mg PO Q6H #60 tabs 03/20/23 Rx ibuprofen 400 mg tablet 800 mg PO Q8H #40 tabs 03/20/23 Rx oxycodone 5 mg tablet 5 mg PO Q4HP PRN Moderate Pain #20 03/20/23 Rx tabs New Prescriptions to Start Prescriptions: acetaminophen Melba Harveynifer ibuprofen CandicePriya oxycodone Priya Harvey Allergies Allergy/AdvReac Type Severity Reaction Status Date / Time No Known Allergies Allergy Verified 03/18/23 06:15 Discharge Plan Disposition Patient Disposition: Home, Self-Care Condition: Good Discharge Order Discharge Orders: Mattie
== END 2023-03-20 12:00 | disposition home or self-care (01) | DRG 788 ==
PROVIDERS: Admitting Provider Obstetrics & Gynecology; Visit Provider Obstetrics & Gynecology
PROC: 10D00Z1 Extraction of Products of Conception, Low, Open Approach (ICD-10-PCS; principal; 2023-03-18 07:30)
DX: O98.32 Other infections with a predominantly sexual mode of transmission complicating childbirth (principal); A63.0 Anogenital (venereal) warts; Z3A.39 39 weeks gestation of pregnancy; Z37.0 Single live birth; O99.214 Obesity complicating childbirth; Z87.891 Personal history of nicotine dependence; Z23 Encounter for immunization
CPT/HCPCS: 59514; 36415; 59025; 80053; 80305; 81001; 82800; 85025; 86850; 94761; C9803; G0283; U0003; U0005

== ENCOUNTER 2023-06-06 13:47 | Emergency (ER) | payer OTHER, SELFPAY ==
[2023-06-06 13:47] VITALS: BP 145/93; PULSE 93; RESP 18; TEMP 36.6; O2SAT 99; BMI 38.4
--- NOTE | 2023-06-06 13:56 | HMH.EDGENADL ---
Discharge Plan Disposition Patient Disposition: Home, Self-Care Prescriptions Prescriptions: No Action norethindrone (contraceptive) [Ortho Micronor] 0.35 mg tablet 0.35 mg PO DAILY Qty: 84 3RF prenat.vits,rika,ehv-etpk-nxggs Tablet 1 tab PO DAILY Referrals Follow up/Referrals: Dionicio Wise DO [Staff Physician] - See instructions (for evaluation of MRI of the right knee for chronic intermittent pain and swelling concerning for possible meniscal injury ) Provider,Referral, [Primary Care Provider] - See instructions Clinical Impressions Clinical Impression: Knee pain, right Discharge ED Provider: Jacqueline Patterson General Adult HPI General Chief complaint: PAIN Stated complaint: RT leg inflammation Time Seen by Provider: 06/06/23 13:56 Mode of Arrival: Ambulatory Source of Information: Patient Limitations: No Limitations Description of Symptoms (Recalled from ER Triage Doc. by RN): Patient reports 2 day history of right leg swelling and pain. Denies any injury or fall. History of Present Illness HPI narrative: 22-year-old female 3 months here with right anterior knee pain. She has no circumferential swelling or pain. It is confined to the anterior aspect of the right knee from historical standpoint primarily on the medial aspect. She states she had multiple injuries in the past and this is coming gone in terms of pain and swelling over the years and she called her OB doctor today they told her to come to the emergency department. She took Tylenol prior to arrival without any significant improvement. No injuries that she is aware of recently. She is able to bear weight and walk without any difficulty. No fevers chills swelling or erythema of the area. Related Data Home Medications Medication Instructions Recorded Confirmed prenat.vits,rika,cix-ptlk-eoqer 1 tab PO DAILY 04/01/23 05/06/23 Previous Rx's Medication Instructions Recorded norethindrone (contraceptive) 0.35 0.35 mg PO DAILY #84 tabs 05/06/23 mg tablet (Ortho Micronor) Allergies Allergy/AdvReac Type Severity Reaction Status Date / Time No Known Allergies Allergy Verified 05/06/23 10:11 [facility] Disclaimer: The information contained in this section may have been updated after the patient was seen, as this information can be updated by other users. Medical History (Updated 06/06/23 @ 14:11 by Jacqueline Patterson MD) Acid reflux Acute blood loss anemia Anxiety Condyloma acuminata of vulva in in third trimester Genital condyloma, female Obesity (BMI 35.0-39.9 without comorbidity) Surgical History (Updated 05/06/23 @ 10:58 by Priya Harvey DO) S/P section Family History Other No significant family history Social History Smoking Status: Never smoker alcohol intake: never substance use type: denies use current occupational status: unemployed Travel in the last 8 weeks: None do you feel safe at home: Yes victim of physical abuse: No victim of emotional abuse: No victim of sexual abuse: No ROS Obtained: Yes All systems reviewed & no additional complaints except as documented Physical Exam General General appearance: alert Respiratory Respiratory exam: Present normal lung sounds bilaterally; Absent respiratory distress Cardiovascular Cardiovascular exam: Present regular rate; Absent tachycardia Extremities Exam Extremities exam: Present other (ObjectRight knee appears fully the same as the left. She does have medial joint pain tenderness no appreciable joint effusion however body habitus limits exam there is no redness warmth) Neurological Exam Neurological exam: Present alert and oriented X3 Medical Decision Making Timoteo Inquiry Pt receiving controlled substance: No Vital Signs: 06/06/23 13:47 Temperature 97.8 F Temperature Source Oral
--- NOTE | 2023-06-06 14:08 | XR_ITS ---
FINAL REPORT CLINICAL HISTORY: non traumatic pain and swelling rt knee FINDINGS: AP, lateral and oblique views of the right knee were obtained. There is no prior exam for comparison. There is no acute osseous abnormality of the right knee. The joint space is preserved. The soft tissues are normal. There is a small joint effusion. IMPRESSION: Small joint effusion. If symptoms persist, consider MRI. Reviewed, Interpreted and Dictated by Jacqui Villa MD Transcribed by Elidia Gates Authenticated and [facility]
[2023-06-06 15:35] VITALS: BP 136/78; PULSE 76; RESP 18; TEMP 36.9; O2SAT 98
== END 2023-06-06 15:37 | disposition home or self-care (01) ==
PROVIDERS: Emergency Provider Student in an Organized Health Care Education/Training Program
DX: M25.561 Pain in right knee (principal); R22.41 Localized swelling, mass and lump, right lower limb; F41.9 Anxiety disorder, unspecified; K21.9 Gastro-esophageal reflux disease without esophagitis
CPT/HCPCS: 73562; 99283

== ENCOUNTER 2023-11-18 16:15 | Outpatient (CLI) | payer OTHER, SELFPAY ==
[2023-11-18 17:56] LABS: HCG,Quantitative < 2 mIU/ml (0-5.42)
== END 2023-11-18 23:59 ==
LOC: LAB 16:15
PROVIDERS: Visit Provider Obstetrics & Gynecology
DX: N92.6 Irregular menstruation, unspecified (principal)
CPT/HCPCS: 36415; 84702

== ENCOUNTER 2024-04-19 11:11 | Emergency (ER) | payer OTHER, SELFPAY ==
--- NOTE | 2024-04-19 11:31 | HMH.EDGENADL ---
Discharge Plan Disposition Patient Disposition: Home, Self-Care Prescriptions Prescriptions: No Action norethindrone (contraceptive) [Ortho Micronor] 0.35 mg tablet 0.35 mg PO DAILY Qty: 84 3RF prenat.vits,rika,ckh-zdtt-pecov Tablet 1 tab PO DAILY Referrals Follow up/Referrals: Provider,Referral, [Primary Care Provider] - See instructions Activity Restrictions/Add. Instructions Additional Instructions/Restrictions: You sustained a minor concussion with your fall from a few days ago. I am not concerned about any clinically significant intracranial injury that would require neurosurgical intervention therefore risk of a CAT scan far outweighs any benefit. Expect postconcussive symptoms as discussed return with any significant worsening otherwise he may take Tylenol and ibuprofen as needed for your symptoms. Clinical Impressions Clinical Impression: Concussion, Hematoma of scalp, Abrasion of scalp Discharge ED Provider: Jacqueline Patterson General Adult HPI General Stated complaint: AO 04/17 fell hit head, headache cut on top of head Time Seen by Provider: 04/19/24 11:26 History of Present Illness HPI narrative: Patient is a 23-year-old female presenting today with a head injury. States she fell 2 days ago after tripping over a baby gate hitting her head on the side of a refrigerator. No loss of consciousness but she did feel as if she had her rao ring. Subsequently she has had some swelling in that area and had a low bit of bleeding at the time that is since resolved. A friend convinced her to come today. She has not had any changes in mental status no persistent nausea and vomiting no focal neurologic deficits. She is not on any anticoagulants or antiplatelet agents. Related Data Home Medications Medication Instructions Recorded Confirmed prenat.vits,rika,kpb-wtza-inbym 1 tab PO DAILY 04/01/23 05/06/23 Previous Rx's Medication Instructions Recorded norethindrone (contraceptive) 0.35 0.35 mg PO DAILY #84 tabs 05/06/23 mg tablet (Ortho Micronor) Allergies Allergy/AdvReac Type Severity Reaction Status Date / Time No Known Allergies Allergy Verified 05/06/23 10:11 [facility] Disclaimer: The information contained in this section may have been updated after the patient was seen, as this information can be updated by other users. Medical History (Updated 04/19/24 @ 11:31 by Jacqueline Patterson MD) Acute blood loss anemia Condyloma acuminata of vulva in in third trimester Genital condyloma, female Acid reflux Obesity (BMI 35.0-39.9 without comorbidity) Anxiety Surgical History (Updated 05/06/23 @ 10:58 by Priya Harvey DO) S/P section Family History Other No significant family history Social History Smoking Status: Never smoker alcohol intake: never substance use type: denies use current occupational status: unemployed Travel in the last 8 weeks: None do you feel safe at home: Yes victim of physical abuse: No victim of emotional abuse: No victim of sexual abuse: No ROS Obtained: Yes All systems reviewed & no additional complaints except as documented Physical Exam General General appearance: alert and in no apparent distress Head Head exam: other (Small right parietal hematoma with well-approximated superficial abrasion no depressed skull fracture Johnson sign or raccoon eyes noted) Neck Neck exam: Absent tenderness (No midline cervical spine tenderness) Respiratory Respiratory exam: Present normal lung sounds bilaterally Cardiovascular Cardiovascular exam: Present regular rate Neurological Exam Neurological exam: Present alert, oriented X3, CN II-XII intact and normal gait; Absent motor sensory deficit Medical Decision Making Timoteo Inquiry Pt receiving controlled substance: No Medical Decision Narrative: 23-year-old female [place] CT head negative Nexus -2 days out from a minor head injury clinically with a mild concussion. No indication for any CT imaging as risk of radiation in part with any significant benefit. I am not concerned about clinically significant injuries that would require neurosurgical intervention right now. She has been advised to take Tylenol or ibuprofen. She had a discussion with me regarding postconcussive symptoms and return precautions patient was discharged in stable condition. Critical Care Critical Care Time Critical Care Time: No
[2024-04-19 11:42] VITALS: BP 128/79; PULSE 78; RESP 20; TEMP 36.8; O2SAT 98; BMI 23.2
[2024-04-19 11:59] VITALS: BP 128/79; PULSE 78; RESP 20; TEMP 36.8; O2SAT 98
== END 2024-04-19 12:02 | disposition home or self-care (01) ==
PROVIDERS: Emergency Provider Student in an Organized Health Care Education/Training Program
DX: S06.0X0A Concussion without loss of consciousness, initial encounter (principal); S00.03XA Contusion of scalp, initial encounter; W01.198A Fall on same level from slipping, tripping and stumbling with subsequent striking against other object, initial encounter
CPT/HCPCS: 99282

== ENCOUNTER 2024-04-26 11:18 | Outpatient (CLI) | payer OTHER, SELFPAY ==
[2024-04-26 12:38] LABS: HCG,Quantitative < 2 mIU/ml (0-5.42)
[2024-04-27 09:15] LABS: Progesterone 9.1 ng/mL (.)
== END 2024-04-26 23:59 | disposition home or self-care (01) ==
PROVIDERS: Visit Provider Obstetrics & Gynecology
DX: Z30.9 Encounter for contraceptive management, unspecified (principal)
CPT/HCPCS: 36415; 84144; 84702

== ENCOUNTER 2024-09-08 13:44 | Outpatient (CLI) | payer OTHER, SELFPAY ==
[2024-09-08 15:00] LABS: HCG,Quantitative 128 mIU/ml (0-5.42)
[2024-09-09 11:17] LABS: Progesterone 11.4 ng/mL (.)
== END 2024-09-08 23:59 | disposition home or self-care (01) ==
LOC: LAB 13:45
PROVIDERS: Visit Provider Obstetrics & Gynecology
DX: Z34.90 Encounter for supervision of normal pregnancy, unspecified, unspecified trimester (principal)
CPT/HCPCS: 36415; 84144; 84702

== ENCOUNTER 2024-09-10 12:36 | Outpatient (CLI) | payer OTHER, SELFPAY ==
[2024-09-10 14:52] LABS: HCG,Quantitative 307 mIU/ml (0-5.42)
== END 2024-09-10 23:59 | disposition home or self-care (01) ==
LOC: LAB 12:38
PROVIDERS: Visit Provider Obstetrics & Gynecology
DX: Z34.90 Encounter for supervision of normal pregnancy, unspecified, unspecified trimester (principal)
CPT/HCPCS: 36415; 84702

== ENCOUNTER 2024-10-07 10:24 | Outpatient (CLI) | payer OTHER, SELFPAY | END 2024-10-07 23:59 | disposition home or self-care (01) | LOC: LAB.DROPOF 10-18 10:25 | PROVIDERS: Visit Provider Obstetrics & Gynecology | DX: Z34.90 Encounter for supervision of normal pregnancy, unspecified, unspecified trimester (principal) | CPT/HCPCS: 87086 ==

== ENCOUNTER 2024-10-07 11:27 | Outpatient (CLI) | payer OTHER, SELFPAY ==
--- NOTE | 2024-10-07 11:31 | US_ITS ---
PROCEDURE: US OB <= 14 WEEKS FETUS CLINICAL INDICATION: Dates/Confirmation COMPARISON: No exams were available for comparison FINDINGS: Transvaginal sonographic images of the pelvis were obtained. From her last menstrual period she is 9weeks 0 days. An intrauterine gestational sac is present with a pole with a crown-rump length of 1.89cm This correlates to a gestational age of 8weeks 3days. heart tones are present with an FHR of 181bpm. Yolk sac is noted. The yolk sac measures 6.3mm. There appears to be a small subchorionic hemorrhage. The right ovary is seen and appears normal. The left ovary is seen and appears normal. The left ovary is seen transabdominally. There is no fluid in the cul-de-sac. IMPRESSION: 1. An intrauterine gestational sac is seen with an embryo that measures 8 weeks 3 days. 2. cardiac activity is seen. 3. FRANCIA will remain 05/12/2025. 4. A small subchorionic hemorrhage is seen. 5. Both ovaries are seen and appear normal. 6. No fluid in the cul-de-sac. Dictated by: Ti Ding MD 10/07/2024 16:08 Ti Ding MD in [place] 10/07/2024 16:08
[2024-10-07 12:43] LABS: Basophils % 0.4 % (0.1-2.0); Eosinophils % 0.4 % (0.1-12.0); Hematocrit 42.4 % (37.0-47.0); Hemoglobin 14.6 g/dL (12.2-16.2); Lymphocytes # 1.9 K/mm3 (0.7-4.5); Lymphocytes % 18.1 % (10-50); Mean Corpuscular HGB Conc 34.4 g/dL (31.8-35.4); Mean Corpuscular Hemoglobin 30.1 pg (27.0-31.2); Mean Corpuscular Volume 87.4 fl (81-99); Mean Platelet Volume 8.2 fl (7.4-10.4); Monocytes # 0.4 K/mm3 (0.1-1.0); Monocytes % 4.2 % (1.7-9.3); Neutrophils # 8.1 K/mm3 (1.8-7.8); Neutrophils % 76.9 % (37.0-80.0); Platelet Count 339 K/mm3 (142-424); Red Blood Count 4.85 M/mm3 (4.20-5.40); White Blood Count 10.5 K/mm3 (4.8-10.8)
[2024-10-07 16:26] LABS: HIV (1&2) Antibody Rapid NONREACTIVE (NONREACTIVE)
[2024-10-08 05:24] LABS: HCV Ab Non Reactive (Non Reactive); Hepatitis B Surface Antigen Negative (Negative)
[2024-10-08 08:21] LABS: Rubella Antibodies, IgG <0.90 index (Immune >0.99)
[2024-10-08 11:53] LABS: Rapid Plasma Reagin Ab Titer Non Reactive titer (NonRea<1:1)
== END 2024-10-07 23:59 | disposition home or self-care (01) ==
LOC: RAD 11:28
PROVIDERS: Visit Provider Obstetrics & Gynecology
DX: O36.80X0 Pregnancy with inconclusive fetal viability, not applicable or unspecified (principal); Z3A.08 8 weeks gestation of pregnancy
CPT/HCPCS: 36415; 76801; 85025; 86593; 86762; 86803; 86850; 87086; 87340; 87389

== ENCOUNTER 2024-12-23 09:04 | Outpatient (CLI) | payer OTHER, SELFPAY ==
--- NOTE | 2024-12-23 09:06 | US_ITS ---
PROCEDURE: US OB /MATERNAL DETAIL CLINICAL INDICATION: 20 week + Anatomy Scan-US OB Complete COMPARISON: US US OB <= 14 WEEKS FETUS from 10/07/2024 FINDINGS: Transabdominal sonographic images of the pelvis were obtained. From her established due date she is 20 weeks 0 days. Single viable intrauterine gestation. Breech position. Placenta: Posteriorplacenta grade 1. There is an average amount of fluid. MVP 3.59 cm. The cervix appears satisfactory. Closed and measuring 4.79 cm in length. Complete survey performed and was unremarkable on the submitted images as in PACS. No discrete anomalies identified on survey imaging by technologist. Active fetus. Three-vessel cord with satisfactory umbilical cord insertion. 4- chamber heart noted. Situs, aortic arch, LVOT, RVOT, three-vessel view appear normal. Survey of brain & ventricles Unremarkable. Cerebellum, thalamus, choroid plexus, cisterna magna appear normal. Face and neck survey unremarkable. Profile, nasion, lips and nose appeared normal. Diaphragm and chest views unremarkable. Abdomen: Both kidneys noted and unremarkable. Stomach and bladder noted and satisfactory. Spine: Survey of the spine satisfactory with no anomalies identified nor imaged. Cervical, thoracic, lower spine appear normal. Both arms and legs noted. Amniotic Fluid: Adequate. Measurements: Average ultrasound age 19weeks 4days. Estimated due date by ultrasound age 0605/15/2025. Estimated weight 293g BPD = 19weeks 4days HC = 19weeks 4days AC = 19weeks 4days FL = 19weeks 3days Growth Percentile= 18 Heart Rate = 140bpm Cerebellum = 18weeks 1day Humerus = 20weeks 3days HC/AC is 1.19 FL/BPD is 0.68 FL/AC is 0.22 IMPRESSION: 1. Viable fetus in the breech presentation with a posterior placenta grade 1. 2. The fluid is within normal limits with an MVP 3.59 cm. 3. Anatomical scan appears normal. 4. biometry is consistent with the dates. Dictated by: Ti Ding MD 12/24/2024 09:09 Ti Ding MD in [place] 12/24/2024 09:09
== END 2024-12-23 23:59 | disposition home or self-care (01) ==
LOC: RAD 09:06
PROVIDERS: PCP Obstetrics & Gynecology; Visit Provider Obstetrics & Gynecology
DX: Z36.3 Encounter for antenatal screening for malformations (principal); Z3A.20 20 weeks gestation of pregnancy; O99.342 Other mental disorders complicating pregnancy, second trimester; F41.9 Anxiety disorder, unspecified; Z98.891 History of uterine scar from previous surgery
CPT/HCPCS: 76811

== ENCOUNTER 2025-02-21 12:37 | Outpatient (CLI) | payer OTHER, SELFPAY ==
--- NOTE | 2025-02-21 12:47 | US_ITS ---
PROCEDURE: US OB FOLLOW UP CLINICAL INDICATION: Growth Scan @ 28 weeks/Breech presentation-f/u COMPARISON: US US OB <= 14 WEEKS FETUS from 10/07/2024 US US OB /MATERNAL DETAIL from 12/23/2024 FINDINGS: Transabdominal sonographic images of the pelvis were obtained. The following parameters are obtained: From her established due date she is 28weeks 4days Viable fetus in the breech presentation with a posterior placenta grade 1. The cervix measures 5.18 cm Average ultrasound age 28 weeks 5 days. Estimated weight 1181 grams, 2 lb 10 oz heart rate: 119bpm bpm. BPD: 29weeks 3days, 66 percentile HC: 29weeks 6days, 56 percentile AC: 28weeks 5days, 43 percentile FL: 26weeks 6days, 4 percentile HC/AC: 1.12 FL/BPD: 0.68 FL/AC: 0.2 Growth percentile: 23 Amniotic fluid index: 15.52cm, MVP 5.41 cm No obvious anomalies evident. profile seen, stomach, bladder, kidneys, three-vessel cord, four chamber heart appear normal. IMPRESSION: 1. Viable fetus in the breech presentation with a posterior placenta grade 1. 2. The fluid is within normal limits with an amniotic fluid index 15.52 cm, MVP 5.41 cm. 3. There has been good interval growth with the fetus currently 23rd percentile. 4. Limited anatomical scan appears normal. Dictated by: Ti Ding MD 02/21/2025 14:09 Ti Ding MD in [facility] 02/21/2025 14:09
[2025-02-21 14:19] LABS: Basophils % 0.1 % (0.1-2.0); Eosinophils # 0.1 K/mm3 (0.0-0.4); Eosinophils % 0.5 % (0.1-12.0); Hematocrit 39.8 % (37.0-47.0); Hemoglobin 13.7 g/dL (12.2-16.2); Lymphocytes # 1.4 K/mm3 (0.7-4.5); Lymphocytes % 14.1 % (10-50); Mean Corpuscular HGB Conc 34.4 g/dL (31.8-35.4); Mean Corpuscular Hemoglobin 30.3 pg (27.0-31.2); Mean Corpuscular Volume 88.1 fl (81-99); Mean Platelet Volume 10.9 fl (7.4-10.4); Monocytes # 0.7 K/mm3 (0.1-1.0); Neutrophils % 77.8 % (37.0-80.0); Platelet Count 323 K/mm3 (142-424); Red Blood Count 4.52 M/mm3 (4.20-5.40); Red Cell Distribution Width 12.7 % (11.5-17.5); White Blood Count 10.2 K/mm3 (4.8-10.8)
[2025-02-21 15:55] LABS: Glucose 1 Hour 99 mg/dL (74-100)
[2025-02-21 16:24] LABS: RPR W/RFX Titers Nonreactive (Nonreactive)
== END 2025-02-21 23:59 | disposition home or self-care (01) ==
LOC: LAB 12:38
PROVIDERS: Visit Provider Obstetrics & Gynecology
DX: O32.1XX0 Maternal care for breech presentation, not applicable or unspecified (principal); O99.210 Obesity complicating pregnancy, unspecified trimester; Z98.891 History of uterine scar from previous surgery; O99.340 Other mental disorders complicating pregnancy, unspecified trimester; F41.9 Anxiety disorder, unspecified; Z3A.28 28 weeks gestation of pregnancy
CPT/HCPCS: 36415; 76816; 82947; 85025; 86592

== ENCOUNTER 2025-05-01 16:57 | Outpatient (CLI) | payer OTHER, SELFPAY ==
[2025-05-01 17:29] VITALS: BMI 43.7
[2025-05-01 17:51] LABS: Microscopic, Urine URINE MICROSCOPIC (MICROSCOPIC)
[2025-05-01 17:55] LABS: Appearance,Urine CLEAR (Clear); Bilirubin,Urine Negative (Negative); Blood, Urine TRACE-L (Negative); Color,Urine YELLOW (Yellow); Glucose,Urine (UA) 1+ (Negative); Ketones,Urine Negative (Negative); Leukocyte Esterase,Urine Negative (Negative); Nitrate,Urine Negative (Negative); PH,Urine 6.5 (5.0-8.5); Protein,Urine TRACE (Negative); Urobilinogen,Urine 0.2 EU/dl (0.2)
[2025-05-01 18:20] LABS: RBC,Urine Occasional #/hpf (0-3)
[2025-05-01 18:21] LABS: Bacteria,Urine Trace /lpf
== END 2025-05-01 18:35 | disposition home or self-care (01) ==
LOC: LAB 17:00 → OB 17:02
PROVIDERS: Visit Provider Obstetrics & Gynecology
DX: O14.93 Unspecified pre-eclampsia, third trimester (principal); Z3A.38 38 weeks gestation of pregnancy
CPT/HCPCS: 59025; 81001; G0463

== ENCOUNTER 2025-05-05 01:47 | Inpatient (IN) | payer OTHER, SELFPAY ==
[2025-05-05] VITALS (9 sets, daily range): BP systolic 123–149; BP diastolic 58–96; PULSE 102–118; RESP 16–18; TEMP 36.1–36.9; O2SAT 98–99; BMI 43.7
[2025-05-05] MEDS: ACETAMINOPHEN 500MG TAB 1000 MG PO ×4 (03:04→22:43)
[2025-05-05] MEDS: LACTATED RINGERS 1000ML 1,000 ML 999 ML IV (03:05)
[2025-05-05] MEDS: TERBUTALINE SULFATE 1MG/ML VIAL 0.25 MG SUBCUT (03:08)
[2025-05-05 04:20] LABS: Basophils % 0.1 % (0.1-2.0); Eosinophils % 0.1 % (0.1-12.0); Hematocrit 39.9 % (37.0-47.0); Hemoglobin 13.5 g/dL (12.2-16.2); Immature Granulocytes # 0.08 10^3uL; Immature Granulocytes % 0.5 %; Lymphocytes # 1.5 K/mm3 (0.7-4.5); Lymphocytes % 10.5 % (10-50); Mean Corpuscular HGB Conc 33.8 g/dL (31.8-35.4); Mean Corpuscular Hemoglobin 28.8 pg (27.0-31.2); Mean Corpuscular Volume 85.3 fl (81-99); Mean Platelet Volume 11.1 fl (7.4-10.4); Monocytes % 6.9 % (1.7-9.3); Neutrophils # 11.9 K/mm3 (1.8-7.8); Neutrophils % 81.9 % (37.0-80.0); Nucleated Red Blood Cells # 0 10^3/uL; Nucleated Red Blood Cells % 0 %; Platelet Count 341 K/mm3 (142-424); Red Blood Count 4.68 M/mm3 (4.20-5.40); Red Cell Distribution Width 13.6 % (11.5-17.5); Red Cell Distribution Width-SD 42.1 fL; White Blood Count 14.6 K/mm3 (4.8-10.8)
[2025-05-05] MEDS: LACTATED RINGERS 1000ML 1,000 ML 125 ML IV ×2 (05:30→09:18)
[2025-05-05 06:23] LABS: Anion Gap 11.9 mEq/L (5-15); Carbon Dioxide 19 mmol/L (22.0-30.0); Chloride 110 mmol/L (98-107); Potassium 3.9 mmoL/L (3.5-5.1); Sodium 137 mmol/L (136-145)
[2025-05-05 06:24] LABS: Alanine Aminotransferase 16 U/L (12-78); Albumin Level 3.6 g/dl (3.5-5.0); Albumin/Globulin Ratio 1.2 (1.1-1.8); Alkaline Phosphatase 160 U/L (38-126); Aspartate Amino Transferase 25 U/L (14-36); Bilirubin,Total 0.2 mg/dl (0.2-1.3); Blood Urea Nitrogen 11 mg/dl (7-17); Calcium 9.2 mg/dl (8.4-10.2); Creatinine Clearance Estimated 120 mL/min (50-200); Estimated Glomerular Filt Rate 123 ml/min (>60); GFR (African American) 149 ML/MIN (>60); Globulin 3.1 g/dL (1.3-3.2); Glucose 92 mg/dl (74-100); Total Protein,Serum 6.7 g/dl (6.3-8.2)
--- NOTE | 2025-05-05 07:16 | P.HP_ITS ---
OB - H&P: HPI Antepartum History of Present Illness Chief complaint: Scheduled repeat History of present illness: Ms Radha Hercules is a 24 yo at 39w0d who presented to [facility] L&D after midnight for leakage of fluid followed by contractions. History of x 1. She is scheduled for repeat this morning at 0730. She reports she started leaking fluid around midnight followed by contractions. She was grossly ruptured upon arrival to L&D. She received IV fuids, Tylenol and Terbutaline x 1 dose. Baby is active. No vaginal bleeding. History of Present Criteria for establishing EDC:: LMP confirmed by 1st trimester US care: good care Ultrasounds: normal mid trimester US Obstetrical complications: previous Labs Blood type: O (+) positive Rubella: nonimmune RPR/VDRL: nonreactive HBsAG: negative PFSH [facility] Disclaimer: The information contained in this section may have been updated after the patient was seen, as this information can be updated by other users. Medical History (Updated 05/05/25 @ 08:40 by Priya Harvey DO) UTI (urinary tract infection) Spontaneous rupture of membranes Maternal obesity affecting , antepartum Rubella non-immune status, antepartum Anxiety disorder affecting , antepartum Acute blood loss anemia Condyloma acuminata of vulva in in third trimester Genital condyloma, female Acid reflux Obesity (BMI 35.0-39.9 without comorbidity) Anxiety Surgical History History of S/P section Family History Other No significant family history Social History (Updated 05/05/25 @ 04:31 by Rachelle Cash RN) Smoking Status: Never smoker alcohol intake: never substance use type: denies use current occupational status: unemployed Travel in the last 8 weeks?: None do you feel safe at home: Yes victim of physical abuse: No victim of emotional abuse: No victim of sexual abuse: No Have you lived/traveled outside [place] in past 30 days?: No Contact w/someone who lives/traveled outside US past 30 days?: No Exposure to someone with infectious disease in past 14 days?: No Do you have a fever (greater than 100.4 F or 38 C)?: No Have you tested positive for COVID-19?: No Exposed to someone with COVID-19 in past 14 days?: No Do you have a sore throat?: No Do you have a cough?: No Do you have any weakness?: No Do you have any diarrhea?: No Are you experiencing any unusual bleeding?: No Do you have any muscle aches/pain?: No Do you have any abdominal pain?: No Are you experiencing loss of taste or smell?: No Other Medical History Have you received the Flu Vaccine for this season: No Have you received the Pneumonia Vaccine: No Review of Systems Review of Systems Review of systems:: pertinent systems reviewed and negative unless documented below *Genitourinary Comments: + leakage of fluid, contractions Meds Home Medications and Allergies Home Medications ?Medication ?Instructions ?Recorded ?Confirmed ?Type ferrous sulfate 325 mg (65 mg 325 mg PO DAILY #30 tabs 12/02/24 05/05/25 Rx iron) tablet vits no.126-ferrous fum 1 tab PO DAILY #30 ta bs 12/02/24 05/05/25 Rx 28 mg iron-folic acid 800 mcg tablet (Classic ) New Prescriptions to Start Prescriptions: Allergies Allergy/AdvReac Type Severity Reaction Status Date / Time No Known Allergies Allergy Verified 04/29/25 14:58 OB - H&P: Exam Physical Exam Vital signs: Temp Pulse Resp BP Pulse Ox O2 Del Method 98.4 F 115 H 18 123/58 L 99 Room Air 05/05/25 06:04 05/05/25 06:04 05/05/25 06:04 05/05/25 06:04 05/05/25 06:04 05/05/25 06:04 Constitutional no acute distress, obese and cooperative Routine HEENT Exam Head: Present normocephalic and atraumatic Eye: Absent conjunctivae pink ENT: Present mucous membranes moist Routine Neck Exam Present full ROM Routine Respiratory Exam Present CTA bilaterally and normal respiratory effort Routine Cardiovascular Exam Present RRR Routine Abdominal Exam Present soft (Gravid); Absent tenderness Routine Rectal Exam Patient deferred: visual exam Routine Exam External: Present normal urethra appearance; Absent erythema, swelling, tenderness, lesions, lacerations or vulvar erythema Routine Extremities Exam Present full ROM; Absent edema or calf tenderness Routine Neurological Exam Present alert, moving all extremities and normal speech Routine Psychiatric Exam Present normal affect and cooperative OB - Results Labs Labs: Short CBC 05/05/25 Range/Units 03:30 WBC 14.6 H (4.8-10.8) K/mm3 Hgb 13.5 (12.2-16.2) g/dL Hct 39.9 (37.0-47.0) % Plt Count 341 (142-424) K/mm3 BMP 05/05/25 03:30 Sodium 137 Potassium 3.9 Chloride 110 H Carbon Dioxide 19 L BUN 11 Creatinine 0.60 Glucose 92 Calcium 9.2 Liver Function 05/05/25 Range/Units 03:30 Total Bilirubin 0.2 (0.2-1.3) mg/dl AST 25 (14-36) U/L ALT 16 (12-78) U/L Alkaline Phosphatase 160 H (38-126) U/L Albumin 3.6 (3.5-5.0) g/dl OB - A/P Antepartum (1) History of : Status: Acute (2) Maternal obesity affecting , antepartum: Status: Acute (3) Anxiety disorder affecting , antepartum: Status: Acute (4) Rubella non-immune status, antepartum: Status: Acute (5) Spontaneous rupture of membranes: Status: Acute (6) UTI (urinary tract infection): Status: Acute Additional Plan Additional Information:: Admit to [facility] L&D for scheduled repeat She was prescribed Fosfomycin yesterday for UTI Reviewed risks, benefits, alternatives, expectations and possible complications of surgery. All questions addressed and answered. She voiced understanding of r isks and possible complications. Consent form signed Proceed with RLTCS as scheduled
[2025-05-05] MEDS: CEFAZOLIN 2GM VIAL 2 GM (07:45)
--- NOTE | 2025-05-05 07:53 | HMH.PHAINT1 ---
Pharmacy Intervention Comments: MEDICATION RECONCILIATION COMPLETE USING EXTERNAL PHARMACY FILL HISTORY AND RECENT OB OFFICE VISIT NOTE.
--- NOTE | 2025-05-05 08:41 | EXP.OP.NOTE ---
Date of procedure: 05/05/25 Pre-op Diagnosis:: 1. IUP at 39w0d 2. History of x 1 3. Maternal obesity 4. Spontaneous rupture of membranes 5. Anxiety Post-op Diagnosis:: 1. IUP at 39w0d 2. History of x 1 3. Maternal obesity 4. Spontaneous rupture of membranes 5. Anxiety Procedure performed:: Repeat low transverse section Surgeon:: Priya Harvey DO Joint Runner(s):: Suha Wing DO DATA WAREHOUSE SPECIALIST:: Other (ROSA Olson) Anesthesia: spinal Estimated blood loss (mL): 500 Clinical Note:: Ms Radha Hercules is a 24 yo at 39w0d who presented to [facility] L&D after midnight for leakage of fluid followed by contractions. History of x 1. She is scheduled for repeat this morning at 0730. She reports she started leaking fluid around midnight followed by contractions. She was grossly ruptured upon arrival to L&D. She received IV fuids, Tylenol and Terbutaline x 1 dose. Baby is active. No vaginal bleeding. Operative findings:: 1. Live male baby, Liloel, weighing 6 lb 13 oz 2. Nuchal cord x 2 3. Grossly normal appearing uterus, bilateral fallopian tubes and ovaries Operative note:: The risks, benefits and alternatives of the procedure were reviewed with the patient. Informed consent was obtained. Patient was taken to the operating room where spinal anesthesia was placed. The patient received 2 grams of Ancef preoperatively. Patient was placed in dorsal supine position with a leftward tilt. SCDs in place. Neely catheter was inserted and was draining clear urine prior to the start of the procedure. heart tones were obtained. Vagina was prepped with Betadine swabs x 3. Patient was then prepped and draped in normal sterile fashion. Allis clamp test was performed to ensure adequate anesthesia. A Pfannenstiel skin incision was made 2 cm above pubic symphysis along prior Pfannenstiel scar. This was carried through to underlying layer of fascia. Fascia was incised in midline, extended laterally with Jiang scissors. Superior aspect of fascial incision was grasped with two Yossi clamps, elevated up, and rectus muscle dissected off bluntly and sharply with Jiang scissors. Inferior aspect of fascial incision was grasped with two Yossi clamps, elevated up, and rectus muscle dissected off bluntly and sharply with Jiang scissors. The retcus muscle was then in the midline and the peritoneum was entered bluntly with a digit. Peritoneal incision was then extended superiorly and inferiorly with good visualization of the bladder. Stefano retractor was inserted. The lower uterine segment was incised in a transverse fashion. Clear amniotic fluid was noted. Head was delivered without difficulty. Nuchal x 2 was easily reduced. Remainder of body was delivered without difficulty. Mouth and nares were bulb suctioned. Spontaneous cry was noted. Delayed cord clamping was performed for 60 seconds. The umbilical cord was clamped and cut. The infant was handed to awaiting pediatric staff in stable condition. Apgars were 6(1 min), 9(5 min). Cord blood was obtained. Gentle traction on the umbilical cord and uterine fundal massage delivered the placenta. Placenta was intact. Uterus was cleared of all clots and debris with a moist laparotomy sponge. Corners of the uterine incision were grasped with Allis clamps. The uterine incision was reapproximated with # 1 Vicryl suture in a running, locked stitch. Second layer of the same stitch was used to imbricate the incision. Hemostasis was noted. Posterior cul-de-sac was cleaned with moist laparotomy sponge. Gutters cleared of all clots and debris with a moist laparotomy sponge. Reinspection of the lower uterine segment demonstrated hemostasis. At this point all instruments and sponges were removed from the pelvis.? The peritoneum was grasped with Lissett clamps x 3. The peritoneum was reapproximated with 0 Vicryl suture in a running stitch. The corners of the fascia were grasped with Yossi clamps, and the fascia was reapproximated with two # 1 Vicryl suture overlapped to the right of midline. Subcutaneous tissue was irrigated with clear return of fluids. The subcutaneous tissue was reapproximated with 3-0 Vicryl. The skin was reapproximated with Insorb lisa. Steri strips and Telfa was placed over closed Pfannenstiel skin incision. At the end of the procedure, the uterus was firm with minimal vaginal bleeding. Patient tolerated the procedure well. Instrument, sponges and needle counts were correct x 2. Mom and baby were transported to recovery room in stable condition. Condition: stable Disposition: floor Specimens:: 1. Cord blood Complications:: None
--- NOTE | 2025-05-05 08:48 | EXP.ANES.I ---
[facility] Anesthesia Record Part I Anesthesia Record I Intake, IV Amount: 1,400 Hydration: Adequate Estimated blood loss (mL): 500 Urine output (mL): 0 Blood Products used (#): none Blood Pressure: 123/74 SaO2: 99 Pulse Rate: 109 Airway Patency: Patent Respiratory Rate: 16 Temperature: 97.0 F Patient is:: Awake and Stable Stable to PACU at:: 08:38
[2025-05-05] MEDS: OXYTOCIN/RINGERS LACTATE 30 UNITS/500 ML BAG 40 UNITS IV (09:18)
[2025-05-05] MEDS: SIMETHICONE 80MG CHEWABLE TABLET 160 MG PO ×2 (09:23→19:59)
[2025-05-05] MEDS: OXYCODONE 5MG IMMEDIATE RELEASE TABLET 5 MG PO (12:38)
[2025-05-05] MEDS: KETOROLAC 30MG/ML VIAL 30 MG IV ×2 (13:42→19:59)
[2025-05-05] MEDS: CEFAZOLIN SODIUM 2 GM in 0.9 % SODIUM CHLORIDE 100 ML IV ×2 (15:06→22:43)
[2025-05-05] MEDS: SENNA 8.6MG TABLET 8.6 MG PO (19:59)
[2025-05-06] MEDS: OXYCODONE 5MG IMMEDIATE RELEASE TABLET 5 MG PO ×3 (04:05→09:01)
[2025-05-06] MEDS: IBUPROFEN 400 MG TABLET 800 MG PO ×2 (05:57→15:47)
[2025-05-06 06:25] LABS: Basophils % 0.3 % (0.1-2.0); Eosinophils # 0.1 Kmm3 (0.0-0.4); Eosinophils % 0.6 % (0.1-12.0); Hematocrit 31.9 % (37.0-47.0); Hemoglobin 10.4 g/dL (12.2-16.2); Immature Granulocytes # 0.05 10^3uL; Immature Granulocytes % 0.5 %; Lymphocytes % 18.5 % (10-50); Mean Corpuscular HGB Conc 32.6 g/dL (31.8-35.4); Mean Corpuscular Hemoglobin 28.7 pg (27.0-31.2); Mean Corpuscular Volume 87.9 fl (81-99); Mean Platelet Volume 10.3 fl (7.4-10.4); Monocytes # 0.9 K/mm3 (0.1-1.0); Monocytes % 8.2 % (1.7-9.3); Neutrophils # 7.9 K/mm3 (1.8-7.8); Neutrophils % 71.9 % (37.0-80.0); Nucleated Red Blood Cells # 0 10^3/uL; Nucleated Red Blood Cells % 0 %; Platelet Count 250 K/mm3 (142-424); Red Blood Count 3.63 M/mm3 (4.20-5.40); Red Cell Distribution Width 13.8 % (11.5-17.5); Red Cell Distribution Width-SD 44.3 fL
[2025-05-06] MEDS: ACETAMINOPHEN 500MG TAB 1000 MG PO ×3 (07:38→20:35)
[2025-05-06 08:15] VITALS: BP 149/85; PULSE 108; RESP 18; TEMP 36.6; O2SAT 99
--- NOTE | 2025-05-06 09:13 | EXP.ANES.II ---
[facility] Anesthesia Record Part II Anesthesia Record Part II Discharge Time: 09:08 Destination: Obstetric PACU nurse assessment reviewed?: Yes Patient Condition:: Good Anesthesia Complications:: None Swallowing reflex intact?: Yes Airway Patency: Patent Cyanosis?: No Blood Pressure: 125/64 SaO2: 98 Respiratory Rate: 16 Pulse Rate: 117 Temperature: 98.2 F Mental Status: Alert & Oriented Pain level:: 0 Nausea and/or vomitting:: None Intake, IV Amount: 0 Hydration: Adequate
[2025-05-06 09:14] VITALS: BP 125/64; PULSE 117; RESP 16; TEMP 36.8; O2SAT 98
[2025-05-06 10:05] LABS: RPR W/RFX Titers Nonreactive (Nonreactive)
--- NOTE | 2025-05-06 10:20 | P.PN_ITS ---
Subjective *Date: 05/06/25 *Time: 10:20 Interval history: POD # 1 s/p RLTCS Feeling okay. Pain not well controlled. Formula feeding. Lochia is appropriate. Voiding without difficulty and passing flatus. Tolerating regular diet. Denies fever/chills, chest pain and shortness of breath. No headaches, vision changes, lightheadedness/dizziness. Admits to lower extremity swelling. No calf pain. Ambulating well ad angela. Medical Exam Vital signs and Labs for Last 24 Hours: Vital Signs Temp Pulse Resp BP Pulse Ox O2 Del Method 05/06/25 09:14 16 05/06/25 08:15 97.9 F 108 H 18 149/85 H 99 Room Air 05/05/25 16:32 98.1 F 102 H 18 149/96 H 99 Room Air Intake and Output 05/05/25 05/06/25 05/06/25 23:59 07:59 15:59 Intake Total 0 / 0 Balance 0 / 0 Intake: Intake, Total IV Amount 0 / 0 Laboratory Results - last 24 hr 05/05/25 03:30: RPR w/Rflx to Titer Nonreactive, Blood Type O Positive, Antibody Screen Negative, Crossmatch (AHG) See Detail 05/06/25 06:15: WBC 11.0 H, RBC 3.63 L, Hgb 10.4 L, Hct 31.9 L, MCV 87.9, MCH 28.7, MCHC 32.6, RDW 13.8, Plt Count 250 D, MPV 10.3, Neut % (Auto) 71.9, Lymph % (Auto) 18.5, Roberts % (Auto) 8.2, Eos % (Auto) 0.6, Baso % (Auto) 0.3, Neut # (Auto) 7.9 H, Lymph # (Auto) 2.0, Roberts # (Auto) 0.9, Eos # (Auto) 0.1, Baso # (Auto) 0.0 I & O for Labs for Last 24 Hours: Intake & Output 05/03/25 05/04/25 05/05/25 05/06/25 23:59 23:59 23:59 23:59 Intake Total 1400 / 1400 0 / 0 Balance 1400 / 1400 0 / 0 Weight 247 lb Head: Present atraumatic and normocephalic ENT: Present normal exam Neck: Present normal inspection and full ROM Respiratory: Present CTA bilaterally and normal respiratory effort Cardiac: Present Reg Rate and Rhythm GI: Present soft and tenderness (appropriate postop mild tenderness to palpation); Absent distention Comments:: Pfannenstiel incision clean/dry/intact Rectal (female): Present deferred (female): Present deferred Extremities: Present full ROM and edema (+1 bilateral lower extremity edema); Absent calf tenderness Neuro: Present alert, awake and moves all extremities Assessment and Plan *Assessment and plan (1) S/P section: Status: Acute Category: Surgical Code(s): Z98.891 - History of uterine scar from previous surgery (2) Maternal obesity affecting , antepartum: Status: Acute Qualifiers: Obesity type affecting : unspecified obesity Qualified Code(s): O99.210 - Obesity complicating , unspecified trimester Category: Medical Code(s): O99.210 - Obesity complicating , unspecified trimester (3) Anxiety disorder affecting , antepartum: Status: Acute Category: Medical Code(s): O99.340 - Other mental disorders complicating , unspecified trimester; F41.9 - Anxiety disorder, unspecified (4) History of : Status: Acute Category: Surgical Code(s): Z98.891 - History of uterine scar from previous surgery (5) Rubella non-immune status, antepartum: Status: Acute Category: Medical Code(s): O09.899 - Supervision of other high risk pregnancies, unspecified trimester; Z28.39 - Other underimmunization status Plan Continue routine care Oxycodone increased to 10 mg PO q 4- 6 hrs. Continue scheduled ibuprofen and tylenol Abdominal binder PRN Encouraged increased ambulation She has taken sertraline 100 mg PO and buspirone in the past. Will start sertraline 50 mg PO and buspirone 5 mg PO BID Close monitoring Possible d/c home tomorrow
[2025-05-06] MEDS: OXYCODONE 5MG IMMEDIATE RELEASE TABLET 10 MG PO ×3 (13:14→22:22)
[2025-05-06 15:50] VITALS: BP 144/97; PULSE 107; RESP 17; TEMP 36.8; O2SAT 99
[2025-05-06] MEDS: SIMETHICONE 80MG CHEWABLE TABLET 160 MG PO (20:34)
[2025-05-06] MEDS: BUSPIRONE HCL 10 MG TABLET PO (20:34)
[2025-05-06] MEDS: SERTRALINE 50MG TABLET 50 MG PO (20:34)
[2025-05-06] MEDS: SENNA 8.6MG TABLET 8.6 MG PO (20:35)
[2025-05-07] MEDS: SIMETHICONE 80MG CHEWABLE TABLET 160 MG PO (03:09)
[2025-05-07] MEDS: IBUPROFEN 400 MG TABLET 800 MG PO ×2 (03:09→09:35)
[2025-05-07] MEDS: ACETAMINOPHEN 500MG TAB 1000 MG PO ×2 (03:10→09:36)
[2025-05-07 08:03] VITALS: BP 153/76; PULSE 107; RESP 16; TEMP 36.8; O2SAT 98
[2025-05-07] MEDS: OXYCODONE 5MG IMMEDIATE RELEASE TABLET 10 MG PO (09:36)
[2025-05-07] MEDS: BUSPIRONE HCL 10 MG TABLET PO (09:40)
[2025-05-07 10:12] VITALS: BP 134/71
--- NOTE | 2025-05-07 10:34 | P.DS_ITS ---
General Admission date:: 05/05/25 Discharge date: 05/07/25 HPI HPI HPI: Ms Radha Hercules is a 24 yo at 39w0d who presented to [facility] L&D after midnight for leakage of fluid followed by contractions. History of x 1. She is scheduled for repeat this morning at 0730. She reports she started leaking fluid around midnight followed by contractions. She was grossly ruptured upon arrival to L&D. She received IV fuids, Tylenol and Terbutaline x 1 dose. Baby is active. No vaginal bleeding. Hospital Course Hospital Course Hospital Course: Amie Hercules is a 24-year-old G3, P2 day #2 from a repeat delivery. She delivered a live viable male infant on 05/05/2025 at 0 754. weighed 6 pounds 13 ounces. Apgars were 6 and 9 at 1 and 5 minutes respectively. She had increased pain on day #1 but her pain is now very well-controlled and she desires discharge home. She has done well and has remained afebrile with her at her hospitalization. She is eating and drinking and ambulating. She is breast and bottle feeding. Her lochia is normal. She has O Rh+ blood, she is rubella nonimmune and was group B streptococcus positive with GBS bacteria in her urine. She will be discharged home to follow-up with Dr. Harvey in 2 weeks time. She will continue with her vitamins and iron. Discussed with the patient that iron was best absorbed with vitamin C and a large glass of water. Discussed that this should be taken once daily or every other day and any more frequent than these instructions which is because worsening of her GI upset without increased absorption of the iron. She has a prescription for Percocet and will continue these at home. She will take ibuprofen as well. She has baseline and depression and was restarted on her home meds day #1 and states that she has a follow-up appointment with her PCP in 1 week. She declines a history of depression. The signs and symptoms were reviewed and she will call the office immediately with any concerns. She was given the usual instructions with respect to limiting her activity, driving and sexual activity. She was given instructions with respect to wound care. Her condition on discharge is stable and improved. Exam Data for Last 24 hours Vital signs and Labs for Last 24 Hours: Temp Pulse Resp BP Pulse Ox O2 Del Method 98.3 F 107 H 16 153/76 H 98 Room Air 05/07/25 08:03 05/07/25 08:03 05/07/25 08:03 05/07/25 08:03 05/07/25 08:03 05/07/25 08:03 Temp Pulse Resp BP Pulse Ox 98.1 F 108 H 18 135/63 100 03/20/23 09:01 03/20/23 09:01 03/20/23 09:01 03/20/23 09:01 03/20/23 09:01 I & O for Last 24 hours: Intake & Output 05/04/25 05/05/25 05/06/25 05/07/25 23:59 23:59 23:59 23:59 Intake Total 1400 / 1400 0 / 0 Balance 1400 / 1400 0 / 0 Weight 247 lb Intake & Output 03/17/23 03/18/23 03/19/23 03/20/23 23:59 23:59 23:59 23:59 Intake Total 2400 / 2400 Output Total 200 / 200 300 / 300 Balance 2200 / 2200 -300 / -300 Weight 245 lb Constitutional Constitutional: no acute distress and cooperative *Routine HEENT Exam Head: Present normocephalic and atraumatic Eye: Absent conjunctivae pink ENT: Present mucous membranes moist and dentition normal *Routine Neck Exam Neck: Present full ROM *Routine Respiratory Exam Respiratory: Present CTA bilaterally and normal respiratory effort *Routine Cardiovascular Exam Cardiovascular: Present RRR *Routine Abdominal Exam Abdominal: Present soft and normoactive bowel sounds; Absent tenderness or distended Comments: Uterine fundus firm and below umbilicus; Pfannenstiel incision clean/dry/intact *Routine Rectal Exam Patient deferred: visual exam *Routine Exam Patient deferred: external exam *Routine Extremities Exam Extremities: Present edema (+2 bilateral lower extremity edema) and full ROM; Absent calf tenderness *Routine Neurological Exam Neurological: Present alert, oriented X3 and moving all extremities Routine Psychiatric Exam Psychiatric: Present normal affect and cooperative DS: Diagnosis Discharge Diagnosis (1) S/P section: Status: Acute Code(s): Z98.891 - History of uterine scar from previous surgery (2) Maternal obesity affecting , antepartum: Status: Acute Code(s): O99.210 - Obesity complicating , unspecified trimester Qualifiers: Obesity type affecting : unspecified obesity Qualified Code(s): O99.210 - Obesity complicating , unspecified trimester (3) Anxiety disorder affecting , antepartum: Status: Acute Code(s): O99.340 - Other mental disorders complicating , unspecified trimester; F41.9 - Anxiety disorder, unspecified (4) History of : Status: Acute Code(s): Z98.891 - History of uterine scar from previous surgery (5) Rubella non-immune status, antepartum: Status: Acute Code(s): O09.899 - Supervision of other high risk pregnancies, unspecified trimester; Z28.39 - Other underimmunization status Meds Home Medications and Allergies Home Medications ?Medication ?Instructions ?Recorded ?Confirmed ?Type ferrous sulfate 325 mg (65 mg 325 mg PO DAILY #30 tabs 12/02/24 05/05/25 Rx iron) tablet vits no.126-ferrous fum 1 tab PO DAILY #30 ta bs 12/02/24 05/05/25 Rx 28 mg iron-folic acid 800 mcg tablet (Classic ) acetaminophen 500 mg tablet 500 mg PO Q6H PRN fever or pain 05/07/25 Rx #30 tabs ferrous sulfate 325 mg (65 mg 325 mg PO DAILY #30 tabs 05/07/25 Rx iron) tablet,delayed release ibuprofen 800 mg tablet 800 mg PO Q8H PRN pain #60 t abs 05/07/25 Rx oxycodone 5 mg tablet 5 mg PO Q8H PRN pain #25 tab s 05/07/25 Rx sennosides 8.6 mg tablet (Senna 8.6 mg PO BIDP PRN Con stipation 05/07/25 Rx Lax) #60 tabs simethicone 125 mg tablet 125 mg PO DAILY PRN abdomina l 05/07/25 Rx distention #60 tabs New Prescriptions to Start Prescriptions: acetaminophen Maciej,Suha ferrous sulfate Maciej,Suha ibuprofen Suha Wing oxycodone Suha Wing sennosides [Senna Lax] Maciej,Suha simethicone Suha Wing Allergies Allergy/AdvReac Type Severity Reaction Status Date / Time No Known Allergies Allergy Verified 04/29/25 14:58 Discharge Plan Disposition Patient Disposition: Home, Self-Care Discharge Order Discharge Orders: Discharge Order (Routine); Ordered 05/07/25 Ordered By: Suha Wing Follow up Plan Follow up with: Priya Harvey DO [Staff Physician, [facility]] - 05/18/25 1:45 pm Prescriptions/Medication Reconciliation: New ibuprofen 800 mg tablet 800 mg PO Q8H PRN (Reason: pain) Qty: 60 2RF acetaminophen 500 mg tablet 500 mg PO Q6H PRN (Reason: fever or pain) Qty: 30 3RF ferrous sulfate 325 mg (65 mg iron) tablet,delayed release (DR/EC) 325 mg PO DAILY Qty: 30 3RF oxycodone 5 mg tablet 5 mg PO Q8H PRN (Reason: pain) Qty: 25 0RF Rx Instructions: you may take 1-2 tablets every 8hours as needed for breakthrough pain sennosides [Senna Lax] 8.6 mg Tablet 8.6 mg PO BIDP PRN (Reason: Constipation) Qty: 60 2RF simethicone 125 mg tablet 125 mg PO DAILY PRN (Reason: abdominal distention) Qty: 60 2RF Continued ferrous sulfate 325 mg (65 mg iron) tablet 325 mg PO DAILY Qty: 30 5RF Classic 28 mg iron- 800 mcg tablet 1 tab PO DAILY Qty: 30 5RF Problem Reconciliation Problems Reviewed?: Yes Patient Discharge Instructions ACTIVITY: Continue current activity DIET: regular diet Additional Instructions: Congratulations on the delivery of your sweet baby boy. It is my privilege to be a part of your [employer] [facility] team and I am so thankful I could be a part of your special day. Discharge: 1. Take 800 mg Ibuprofen every 8 hours as needed for pain. You can also take 500-1000mg of Tylenol in between doses, every 6-8 hours. Use prescription pain medicine for pain you feel in between 8 hour interval. -No driving while taking narcotic pain medications. In order to drive you should be able to slam on the brakes without significant abdominal pain. 2. Wean from prescription pain medicine first. Do not drive while taking it. 3. Prescription pain medicine can make you constipated. Colace can be taken 1-2 times per day as you need. Make sure to drink at least 8 cups of water per day. 4. Iron supplements can make you constipated. Colace can be taken 1-2 times per day as you need. You can take iron tablets every other day if constipation is too bad. 5. Nothing in the vagina for 6 weeks - no intercourse, douching, tampons. No tub baths or swimming pools 6. Do not lift greater than 15 pounds for 6 weeks, this is the equivalent of 2 gallons of milk. 7. Reasons to return to L&D or call On-Call doctor - fever (greater than 100.4) - heavy vaginal bleeding (soaking through 1 pad in less than 2 hours or passing clots that are egg sized) - vaginal discharge (malodorous and/or purulent) - bleeding or discharge from her incision - severe headaches, leg tenderness/edema, or any other symptoms that warrant immediate medical attention. 8. depression/blues - Normal to feel anxious/overwhelmed for first 2 weeks - Talk to your doctor if: anxiety lasts over 2 weeks, trouble bonding with baby, withdrawing from other family members, thoughts of harming yourself or others Blood pressure and preeclampsia instructions 1. Please take your blood pressure twice daily. 2. Please call if greater than 2 values are higher than: 150 systolic (the top number) or 90 diastolic (the bottom number). 3. Please go to the emergency room or labor and delivery triage if any value is higher than: 160 systolic (the top number) or 110 diastolic (the bottom number). 4. Please call if unrelenting headache (does not go away with rest or Tylenol or ibuprofen), changes in vision (spots, floaters, flashes of light), chest pain, shortness of breath, or right upper quadrant (liver) abdominal pain. Suha Wing DO [facility] [phone] *Nothing in the Vagina for 6 weeks* *No strenuous activity* *No heavy lifting* *No tub baths until okay's by MD* Patient Instructions: Depression, Hemorrhage, DI for , DI for Pre-eclampsia, [facility] Post Discharge Instructions Print Language: Barbadian Providers Primary Care Provider: Provider,Referral Admit Provider: Suha Wing Attending Provider: Priya Harvey
[2025-05-07 10:43] VITALS: BP 123/58
[2025-05-07 11:13] VITALS: BP 114/61
[2025-05-07 11:43] VITALS: BP 116/62
== END 2025-05-07 12:40 | disposition home or self-care (01) | DRG 788 ==
PROVIDERS: Admitting Provider Obstetrics & Gynecology; Visit Provider Obstetrics & Gynecology
PROC: 10D00Z1 Extraction of Products of Conception, Low, Open Approach (ICD-10-PCS; CPT 59514; principal; 2025-05-05 07:30)
DX: O34.211 Maternal care for low transverse scar from previous cesarean delivery (principal); O99.214 Obesity complicating childbirth; F41.9 Anxiety disorder, unspecified; O99.344 Other mental disorders complicating childbirth; O69.81X0 Labor and delivery complicated by cord around neck, without compression, not applicable or unspecified; O99.824 Streptococcus B carrier state complicating childbirth; F32.A Depression, unspecified; Z91.81 History of falling; Z23 Encounter for immunization; Z28.39 Other underimmunization status; Z86.19 Personal history of other infectious and parasitic diseases; Z79.899 Other long term (current) drug therapy; Z3A.39 39 weeks gestation of pregnancy; Z37.0 Single live birth; Z56.0 Unemployment, unspecified; Z87.440 Personal history of urinary (tract) infections
CPT/HCPCS: 51702; 59025; 80053; 85025; 86592; 86850; 94761; J0665; J0666; J0690; J1100; J1885; J2405; J2590; J3010; J3105; J7120

== ENCOUNTER 2025-06-27 11:56 | Emergency (ER) | payer OTHER, SELFPAY ==
[2025-06-27 12:07] VITALS: BP 154/85; PULSE 136; RESP 20; TEMP 37.3; O2SAT 99; BMI 38.9
[2025-06-27 12:23] LABS: Hematocrit 43.4 % (37.0-47.0); Hemoglobin 14.5 g/dL (12.2-16.2); Immature Granulocytes % 0.1 %; Mean Corpuscular HGB Conc 33.4 g/dL (31.8-35.4); Mean Corpuscular Hemoglobin 28.0 pg (27.0-31.2); Mean Corpuscular Volume 83.8 fl (81-99); Nucleated Red Blood Cells % 0 %; Platelet Count 388 K/mm3 (142-424); Red Blood Count 5.18 M/mm3 (4.20-5.40); Red Cell Distribution Width-SD 40.5 fL; White Blood Count 7.9 K/mm3 (4.8-10.8)
[2025-06-27] MEDS: 0.9 % SODIUM CHLORIDE 1000ML 500 ML 999 ML IV (12:23)
[2025-06-27 12:35] LABS: Alanine Aminotransferase 58 U/L (12-78); Albumin Level 4.8 g/dl (3.5-5.0); Albumin/Globulin Ratio 1.3 (1.1-1.8); Alkaline Phosphatase 112 U/L (38-126); Anion Gap 14.5 mEq/L (5-15); Aspartate Amino Transferase 43 U/L (14-36); Bilirubin,Total 0.4 mg/dl (0.2-1.3); Blood Urea Nitrogen 7 mg/dl (7-17); Calcium 10.0 mg/dl (8.4-10.2); Carbon Dioxide 23 mmol/L (22.0-30.0); Chloride 106 mmol/L (98-107); Creatinine Clearance Estimated 171 mL/min (50-200); Creatinine,Serum 0.80 mg/dl (0.52-1.04); Estimated Glomerular Filt Rate 88 ml/min (>60); GFR (African American) 107 ML/MIN (>60); Globulin 3.8 g/dL (1.3-3.2); Glucose 98 mg/dl (74-100); Potassium 3.5 mmoL/L (3.5-5.1); Sodium 140 mmol/L (136-145); Total Protein,Serum 8.6 g/dl (6.3-8.2)
[2025-06-27 12:39] LABS: D-Dimer 0.76 ug/mL (0.0-0.5)
[2025-06-27 12:40] LABS: Microscopic, Urine URINE MICROSCOPIC (MICROSCOPIC)
[2025-06-27 12:50] LABS: Color,Urine YELLOW (Yellow); Glucose,Urine (UA) Negative (Negative); Ketones,Urine TRACE (Negative); Leukocyte Esterase,Urine TRACE (Negative); PH,Urine 6.0 (5.0-8.5); Protein,Urine 2+ (Negative); Specific Gravity, Urine >= 1.030 (1.005-1.030); Urobilinogen,Urine 1.0 EU/dl (0.2)
[2025-06-27 12:52] LABS: Free T4 (Free Thyroxine) 1.47 ng/dl (0.78-2.19)
[2025-06-27 12:52] LABS: Urine Pregnancy, HCG Qual. Negative (Negative)
--- NOTE | 2025-06-27 12:52 | CT_ITS ---
FINAL REPORT TECHNIQUE: Postcontrast axial images of the chest were performed in a CTA protocol. This study was performed with techniques to keep radiation doses as low as reasonably achievable, (ALARA). Individualized dose reduction technique using automated exposure control or adjustment of mA and/or kV according to the patient's size were employed. CLINICAL HISTORY: elevated dimer, tachy csection x 2 months ago. right arm numbness. weakness FINDINGS: The heart is normal in size. No adenopathy is identified. No pleural or pericardial effusion is identified. The thoracic aorta is normal in caliber with no focal aneurysm or dissection identified. There is no filling defect to suggest pulmonary embolism. No lung infiltrate or mass is identified. The images of the upper abdomen are unremarkable. IMPRESSION: No evidence for PE on this exam. Reviewed, Interpreted and Dictated by Jerica Denton MD Transcribed by Ximena Sharp Authenticated and [facility]
[2025-06-27 13:05] LABS: Thyroid Stimulating Hormone 1.04 uIU/mL (0.465-4.68)
[2025-06-27 13:08] LABS: Bilirubin,Urine 1+ (Negative)
[2025-06-27] MEDS: SODIUM CHLORIDE 0.9% 10ML SYR (RAD ONLY) 10 ML IV (13:23)
[2025-06-27] MEDS: 0.9 % SODIUM CHLORIDE 50 ML VIAL IV (13:23)
[2025-06-27] MEDS: IOPAMIDOL-370 (76%);100ML BOTTLE 70 ML IV (13:23)
[2025-06-27 13:25] LABS: RBC,Urine TNTC #/hpf (0-3); Squamous Epithelial Cell,Urine Occasional #/hpf (0-5)
[2025-06-27 13:26] LABS: Bacteria,Urine 1+ /lpf
--- NOTE | 2025-06-27 13:28 | [facility].EDGENADL ---
Discharge Plan Disposition Patient Disposition: Home, Self-Care Prescriptions Prescriptions: New nitrofurantoin monohyd/m-cryst [Macrobid] 100 mg capsule 100 mg PO BID 5 Days Qty: 10 0RF Rx Instructions: must administer with a meal/food No Action buspirone 15 mg tablet PO Patient Comments: TAKE 1 TABLET BY MOUTH TWICE DAILY levonorgestrel-ethinyl estrad [Aviane] 0.1-20 mg-mcg tablet 1 tab PO DAILY Qty: 84 0RF ferrous sulfate 325 mg (65 mg iron) tablet,delayed release (DR/EC) 325 mg PO DAILY Qty: 30 3RF Referrals Follow up/Referrals: Provider,Referral, MD [Primary Care Provider, Medical] - See instructions Activity Restrictions/Add. Instructions Additional Instructions/Restrictions: Today you were evaluated in the emergency department. You have been diagnosed with anxiety and a urinary tract infection. Please take the oral antibiotic as directed. Please take your anxiety medication as directed. Please follow-up with your PCP within 24 hours. Please return to the ED for worsening of condition. Please call your OB and discuss worsening anxiety while on control. Clinical Impressions Clinical Impression: Anxiety, UTI (urinary tract infection) Instructions Patient Instructions: Urinary Tract Infection, Anxiety Disorders Print Language Print Language: Malay Discharge ED Provider: Carlo Couch General Adult HPI <Elsy Robins APRN - Last Filed: 06/27/25 14:16> General Chief complaint: Anxiety Stated complaint: Side effects control Time Seen by Provider: 06/27/25 12:01 Mode of Arrival: Ambulatory Source of Information: Patient and Parent(s) Description of Symptoms (Recalled from ER Triage Doc. by RN): Patient presents to ED with c/o right arm pain and right hand numbness, reports symptoms started 4 days prior when she started taking her control. Also reports feeling anxious, reports she stopped taking her anxiety medication 4 days ago when the right arm pain and numbness started. Denies chest pain, denies SOA. Notes she gave via on 05/03/25 with no complications. History of Present Illness HPI narrative: patient is a 24-year-old female PMHx anxiety, obesity who presents to the ED for complaints of anxiety. Patient states that she has been taking anxiety medicine however abruptly stopped this 4 days ago when she started control. Patient states she is concerned that the control is causing her anxiety. Related Data Home Medications ?Medication ?Instructions ?Recorded ?Confirmed buspirone 15 mg tablet mg PO 06/16/25 06/16/25 Previous Rx's ?Medication ?Instructions ?Recorded ferrous sulfate 325 mg (65 mg 325 mg PO DAILY #30 tabs 05/07/25 iron) tablet,delayed release levonorgestrel-ethinyl estradiol 1 tab PO DAILY #84 tabs 06/27/25 0.1 mg-20 mcg tablet (Aviane) nitrofurantoin 100 mg PO BID 5 days #10 caps 06/27/25 monohydrate/macrocrystals 100 mg capsule (Macrobid) Allergies Allergy/AdvReac Type Severity Reaction Status Date / Time No Known Allergies Allergy Verified 06/16/25 09:20 [facility] <Elsy Robins APRN - Last Filed: 06/27/25 14:16> [facility] Disclaimer: The information contained in this section may have been updated after the patient was seen, as this information can be updated by other users. Medical History UTI (urinary tract infection) Spontaneous rupture of membranes Maternal obesity affecting , antepartum Rubella non-immune status, antepartum Anxiety disorder affecting , antepartum Acute blood loss anemia Condyloma acuminata of vulva in in third trimester Genital condyloma, female Acid reflux Obesity (BMI 35.0-39.9 without comorbidity) Anxiety Surgical History History of S/P section Family History Other No significant family history Social History Smoking Status: Never smoker alcohol intake: never substance use type: denies use current occupational status: unemployed Travel in the last 8 weeks?: None do you feel safe at home: Yes victim of physical abuse: No victim of emotional abuse: No victim of sexual abuse: No Have you lived/traveled outside [place] in past 30 days?: No Contact w/someone who lives/traveled outside [place] past 30 days?: No Exposure to someone with infectious disease in past 14 days?: No Do you have a fever (greater than 100.4 F or 38 C)?: No Have you tested positive for COVID-19?: No Exposed to someone with COVID-19 in past 14 days?: No Do you have a sore throat?: No Do you have a cough?: No Do you have any weakness?: No Do you have any diarrhea?: Yes Are you experiencing any unusual bleeding?: No Do you have any muscle aches/pain?: No Do you have any abdominal pain?: No Are you experiencing loss of taste or smell?: No Other Medical History Have you received the Flu Vaccine for this season: No Have you received the Pneumonia Vaccine: No <Elsy Robins APRN - Last Filed: 06/27/25 14:16> ROS Obtained: Yes Systems reviewed as appropriate & no additional complaints except as documented Physical Exam <Elsy Robins APRN - Last Filed: 06/27/25 14:16> General General appearance: alert Head Head exam: atraumatic Respiratory Respiratory exam: Present normal lung sounds bilaterally and respiratory distress Cardiovascular Cardiovascular exam: Present tachycardia Abdominal Exam Abdominal exam: Present soft Extremities Exam Extremities exam: Present full ROM Back Exam Back exam: Present normal inspection and full ROM Neurological Exam Neurological exam: Present alert and oriented X3 Skin Skin exam: Present warm Medical Decision Making <Elsy Robins APRN - Last Filed: 06/27/25 14:16> Medical Records Screening: Per USPSTF and CDC recommendations, given the prevalence of disease in our region, it is our hospital?s policy to screen for HIV and viral Hepatitis for all patients aged 18 and over and those with ongoing risk factors. Timoteo Inquiry Pt receiving controlled substance: No Vital Signs: 06/27/25 12:07 06/27/25 14:16 Temperature 99.2 F 98.7 F Temperature Source Oral Oral Pulse Rate 74 Pulse Rate [Left] 136 H Respiratory Rate 20 16 Blood Pressure 115/75 Blood Pressure [Left Arm] 154/85 H Blood Pressure Mean [Left Arm] 108 Blood Pressure Source Automatic Cuff Blood Pressure Source [Left Arm] Automatic Cuff Blood Pressure Position Sitting 02 Sat by Pulse Oximetry 99 Oxygen Delivery Method Room Air Room Air Lab Data Lab Results 06/27/25 12:10: WBC 7.9, RBC 5.18, Hgb 14.5, Hct 43.4, MCV 83.8, MCH 28.0, MCHC 33.4, RDW 13.3, Plt Count 388, MPV 10.7 H, Neut % (Auto) 70.1, Lymph % (Auto) 23.4, [place] % (Auto) 5.3, Eos % (Auto) 0.8, Baso % (Auto) 0.3, Neut # (Auto) 5.5, Lymph # (Auto) 1.8, [place] # (Auto) 0.4, Eos # (Auto) 0.1, Baso # (Auto) 0.0, D-Dimer 0.76 H, Sodium 140, Potassium 3.5, Chloride 106, Carbon Dioxide 23, Anion Gap 14.5, BUN 7, Creatinine 0.80, Estimated Creat Clear 171, Estimated GFR 88, Est GFR ( Amer) 107, Glucose 98, Calcium 10.0, Total Bilirubin 0.4, AST 43 H, ALT 58, Alkaline Phosphatase 112, Total Protein 8.6 H D, Albumin 4.8, Globulin 3.8 H, Albumin/Globulin Ratio 1.3, TSH 1.04, Free T4 1.47 06/27/25 12:33: Urine Color Yellow, Urine Appearance Clear, Urine pH 6.0, Ur Specific [place] >= 1.030, Urine Protein 2+ A, Urine Glucose (UA) Negative, Urine Ketones Trace, Urine Blood 3+ A, Urine Nitrate Positive A, Urine Bilirubin 1+ A, Urine Urobilinogen 1.0, Ur Leukocyte Esterase Trace, Urine RBC Tntc, Urine WBC 5-10, Ur Squamous Epith Cells Occasional, Urine Bacteria 1+, Urine HCG, Qual Negative 06/27/25 12:10 06/27/25 12:10 Orders (Tests/Meds): ED MEDICATIONS Discontinued Medications Generic Name Dose Route Start Last Admin Trade Name Freq PRN Reason Stop Dose Admin Hydroxyzine Pamoate 25 mg 06/27/25 12:08 06/27/25 12:24 Hydroxyzine Pamoate 25mg Capsule PO 06/27/25 12:09 25 mg ONCE ONE Administration Sodium Chloride 500 mls @ 999 mls/hr 06/27/25 12:08 06/27/25 12:23 Sod Chlor 0.9% 1000ml Bag IV 06/27/25 12:38 999 mls/hr .Q31M ONE Administration Iopamidol 70 ml 06/27/25 13:22 06/27/25 13:23 Iopamidol-370 (76%);100ml Bottle IV 06/27/25 13:23 70 ml ONCE ONE Administration Sodium Chloride 50 ml 06/27/25 13:22 06/27/25 13:23 0.9 % Sodium Chloride 50 Ml Vial IV 06/27/25 13:23 50 ml ONCE ONE Administration Sodium Chloride 10 ml 06/27/25 13:22 06/27/25 13:23 Sodium Chloride 0.9% 10ml Syr (Rad Only) IV 07/27/25 13:21 10 ml NEEDED PRN Administration Maintain IV Site ORDERS Category Date Time Status CTA Chest [CT angio chest PE protocol] Stat Cat Scan 06/27/25 12:52 Completed CBC w/Auto Diff [Complete Blood Count Auto Diff] Stat Lab 06/27/25 12:10 Completed CMP [Comprehensive Metabolic Panel] Stat Lab 06/27/25 12:10 Completed D-Dimer Stat Lab 06/27/25 12:10 Completed Free T4 (Free Thyroxine) Stat Lab 06/27/25 12:10 Completed TSH [Thyroid Stimulating Hormone] Stat Lab 06/27/25 12:10 Completed Urinalysis and Microscopic Stat Lab 06/27/25 12:33 Completed Urine Chlam/Gono/Trich ([facility]) Stat Lab 06/27/25 12:33 Received Urine , HCG Qual. Stat Lab 06/27/25 12:33 Completed Urine Culture Stat Micro 06/27/25 12:33 Received Medical Decision Narrative: In summary, patient is a 24-year-old female PMHx anxiety, obesity who presents to the ED for complaints of anxiety. Patient states that she has been taking anxiety medicine however abruptly stopped this 4 days ago when she started control. Patient states she is concerned that the control is causing her anxiety. She states at times she has numbness and tingling down her right arm. Denies any recent trauma. Denies any additional medications. Denies any drug use. Patient states she also at times feels foggy . Patient denies SI or HI. Her mother is at bedside helping care for her . Patient denies any issues from . Denies any complications. Denies fever, chills, body aches, headache, visual disturbances, psychosis symptoms, chest pain, shortness of breath, abdominal pain. Upon initial evaluation patient is tachycardic, heart rate 150. Otherwise, physical exam unremarkable. Discussed with patient we will proceed with labs and urine. Advised her we will administer IV fluids and Vistaril. CBC unremarkable for any leukocytosis, stable H&H. D-dimer 0.76, will obtain chest CT. CMP unremarkable for any actionable abnormalities. TSH and T4 normal. Urinalysis remarkable for blood, nitrite, trace leuks, white blood cells and 1+ bacteria. Will culture however will start patient on oral antibiotic. Chest CTA unremarkable for any pulmonary embolism. Upon reassessment, patient's condition has improved. She is no longer tachycardic at 150, heart rate 110. Patient states that she feels much better. I discussed with patient she will need to start her anxiety medication back and call her OB for follow-up with possible issues related to control. I advised patient her anxiety is most likely due to stopping her anxiety medication. With possible issues related to control. I advised patient her anxiety is most likely due to stopping her anxiety medication. Patient states she is already called the OB office to make a follow-up appointment. I advised her to return to the ED for any worsening of condition. She verbalized understanding. <Carlo Couch MD - Last Filed: 06/27/25 19:15> Vital Signs: 06/27/25 12:07 06/27/25 14:16 Temperature 99.2 F 98.7 F Temperature Source Oral Oral Pulse Rate 74 Pulse Rate [Left] 136 H Respiratory Rate 20 16 Blood Pressure 115/75 Blood Pressure [Left Arm] 154/85 H Blood Pressure Mean [Left Arm] 108 Blood Pressure Source Automatic Cuff Blood Pressure Source [Left Arm] Automatic Cuff Blood Pressure Position Sitting 02 Sat by Pulse Oximetry 99 Oxygen Delivery Method Room Air Room Air Lab Data Lab Results 06/27/25 12:10: WBC 7.9, RBC 5.18, Hgb 14.5, Hct 43.4, MCV 83.8, MCH 28.0, MCHC 33.4, RDW 13.3, Plt Count 388, MPV 10.7 H, Neut % (Auto) 70.1, Lymph % (Auto) 23.4, [place] % (Auto) 5.3, Eos % (Auto) 0.8, Baso % (Auto) 0.3, Neut # (Auto) 5.5, Lymph # (Auto) 1.8, [place] # (Auto) 0.4, Eos # (Auto) 0.1, Baso # (Auto) 0.0, D-Dimer 0.76 H, Sodium 140, Potassium 3.5, Chloride 106, Carbon Dioxide 23, Anion Gap 14.5, BUN 7, Creatinine 0.80, Estimated Creat Clear 171, Estimated GFR 88, Est GFR ( Amer) 107, Glucose 98, Calcium 10.0, Total Bilirubin 0.4, AST 43 H, ALT 58, Alkaline Phosphatase 112, Total Protein 8.6 H D, Albumin 4.8, Globulin 3.8 H, Albumin/Globulin Ratio 1.3, TSH 1.04, Free T4 1.47 06/27/25 12:33: Urine Color Yellow, Urine Appearance Clear, Urine pH 6.0, Ur Specific [place] >= 1.030, Urine Protein 2+ A, Urine Glucose (UA) Negative, Urine Ketones Trace, Urine Blood 3+ A, Urine Nitrate Positive A, Urine Bilirubin 1+ A, Urine Urobilinogen 1.0, Ur Leukocyte Esterase Trace, Urine RBC Tntc, Urine WBC 5-10, Ur Squamous Epith Cells Occasional, Urine Bacteria 1+, Urine HCG, Qual Negative Orders (Tests/Meds): ED MEDICATIONS Discontinued Medications Generic Name Dose Route Start Last Admin Trade Name Braulioq PRN Reason Stop Dose Admin Hydroxyzine Pamoate 25 mg 06/27/25 12:08 06/27/25 12:24 Hydroxyzine Pamoate 25mg Capsule PO 06/27/25 12:09 25 mg ONCE ONE Administration Sodium Chloride 500 mls @ 999 mls/hr 06/27/25 12:08 06/27/25 12:23 Sod Chlor 0.9% 1000ml Bag IV 06/27/25 12:38 999 mls/hr .Q31M ONE Administration Iopamidol 70 ml 06/27/25 13:22 06/27/25 13:23 Iopamidol-370 (76%);100ml Bottle IV 06/27/25 13:23 70 ml ONCE ONE Administration Sodium Chloride 50 ml 06/27/25 13:22 06/27/25 13:23 0.9 % Sodium Chloride 50 Ml Vial IV 06/27/25 13:23 50 ml ONCE ONE Administration Sodium Chloride 10 ml 06/27/25 13:22 06/27/25 13:23 Sodium Chloride 0.9% 10ml Syr (Rad Only) IV 07/27/25 13:21 10 ml NEEDED PRN Administration Maintain IV Site ORDERS Category Date Time Status CTA Chest [CT angio chest PE protocol] Stat Cat Scan 06/27/25 12:52 Completed CBC w/Auto Diff [Complete Blood Count Auto Diff] Stat Lab 06/27/25 12:10 Completed CMP [Comprehensive Metabolic Panel] Stat Lab 06/27/25 12:10 Completed D-Dimer Stat Lab 06/27/25 12:10 Completed Free T4 (Free Thyroxine) Stat Lab 06/27/25 12:10 Completed TSH [Thyroid Stimulating Hormone] Stat Lab 06/27/25 12:10 Completed Urinalysis and Microscopic Stat Lab 06/27/25 12:33 Completed Urine Chlam/Gono/Trich ([facility]) Stat Lab 06/27/25 12:33 Received Urine , HCG Qual. Stat Lab 06/27/25 12:33 Completed Urine Culture Stat Micro 06/27/25 12:33 Received Medical Decision Narrative: In summary, patient is a 24-year-old female PMHx anxiety, obesity who presents to the ED for complaints of anxiety. Patient states that she has been taking anxiety medicine however abruptly stopped this 4 days ago when she started control. Patient states she is concerned that the control is causing her anxiety. She states at times she has numbness and tingling down her right arm. Denies any recent trauma. Denies any additional medications. Denies any drug use. Patient states she also at times feels foggy . Patient denies SI or HI. Her mother is at bedside helping care for her . Patient denies any issues from . Denies any complications. Denies fever, chills, body aches, headache, visual disturbances, psychosis symptoms, chest pain, shortness of breath, abdominal pain. Upon initial evaluation patient is tachycardic, heart rate 150. Otherwise, physical exam unremarkable. Discussed with patient we will proceed with labs and urine. Advised her we will administer IV fluids and Vistaril. CBC unremarkable for any leukocytosis, stable H&H. D-dimer 0.76, will obtain chest CT. CMP unremarkable for any actionable abnormalities. TSH and T4 normal. Urinalysis remarkable for blood, nitrite, trace leuks, white blood cells and 1+ bacteria. Will culture however will start patient on oral antibiotic. Chest CTA unremarkable for any pulmonary embolism. Upon reassessment, patient's condition has improved. She is no longer tachycardic at 150, heart rate 110. Patient states that she feels much better. I discussed with patient she will need to start her anxiety medication back and call her OB for follow-up with possible issues related to control. I advised patient her anxiety is most likely due to stopping her anxiety medication. With possible issues related to control. I advised patient her anxiety is most likely due to stopping her anxiety medication. Patient states she is already called the OB office to make a follow-up appointment. I advised her to return to the ED for any worsening of condition. She verbalized understanding. I was consulted by the MARIAELENA, and we discussed the complexity of the problems being addressed. I approve the treatment and management plan for this patient's care in the emergency department, thus performing a substantive portion of the medical decision making. Carlo Couch MD Critical Care <Elsy Robins APRN - Last Filed: 06/27/25 14:16> Critical Care Time Critical Care Time: No
[2025-06-27 14:16] VITALS: BP 115/75; PULSE 74; RESP 16; TEMP 37.1; O2SAT 99
== END 2025-06-27 14:17 | disposition home or self-care (01) ==
PROVIDERS: Nurse Practitioner; Emergency Provider Student in an Organized Health Care Education/Training Program
DX: N39.0 Urinary tract infection, site not specified (principal); R00.0 Tachycardia, unspecified; M79.601 Pain in right arm; F41.1 Generalized anxiety disorder
CPT/HCPCS: 71275; 80053; 81001; 81025; 84439; 84443; 85025; 85378; 87086; 87491; 87591; 87661; 99284; J7030; Q9967

== ENCOUNTER 2025-07-16 13:09 | Emergency (ER) | payer OTHER, SELFPAY ==
[2025-07-16 13:17] VITALS: BP 163/105; PULSE 112; O2SAT 97
[2025-07-16 13:20] VITALS: BP 152/92; PULSE 104; O2SAT 98
--- NOTE | 2025-07-16 13:30 | ECG_ITS ---
APPROVED REPORT Exam: Resting ECG HR:81 bpm ECG Measurements Heart Rate 81 AXES TX 144 P 53 QRSd 85 QRS 81 QT 344 T 42 QTc 381 Conclusion Normal sinus rhythm Normal axis Normal intervals No STEMI Electronically signed by : Isidro French, 07/16/2025 17:31:40
--- NOTE | 2025-07-16 13:30 | ED_ITS ---
<Statement entered by Isidro French DO - 07/16/25 17:22> I was consulted by the MARIAELENA, and we discussed the complexity of problems being addressed. I approved the treatment and management plan for this patient's care in the emergency department, thus performing a substantive portion of the medical decision making. I independently evaluated this patient and obtained history and physical exam as well. Patient states that she was at home this afternoon and began experiencing a popping sensation in her abdomen followed by near syncope. I had to really work hard to further characterize this popping sensation, and ultimately was able to identify that this is more of a bubbling sensation within the region of her mid abdomen. The patient tells me that with bowel movements in the past she is experience syncope, which raises my suspicion that she has a history of vasovagal syncope. She states that she has not experienced any overt abdominal pain. No chest pain or shortness of breath. No palpitations. On physical examination she has no abdominal tenderness to palpation. Heart and lungs clear to auscultation. She has no lower extremity erythema or edema. My overall impression of this patient is that she likely experienced passage of gas or was feeling peristalsis of her gut and then experienced a vasovagal response to this. After thoroughly explaining vasovagal syncope to the patient, she tells me that this is exactly what she has experienced in the past and she also feels that this is what she experienced today. EKG was unremarkable for any electrocardiographic causes of syncope. test is negative. Patient was ultimately stable for discharge home Isidro French DO Discharge Plan Disposition Patient Disposition: Home, Self-Care Condition: Good Prescriptions Prescriptions: No Action buspirone 15 mg tablet PO Patient Comments: TAKE 1 TABLET BY MOUTH TWICE DAILY propranolol 10 mg tablet PO Patient Comments: TAKE 1 TO 2 TABLETS BY MOUTH 3 TIMES DAILY NEEDED FOR ANXIETY levonorgestrel-ethinyl estrad [Aviane] 0.1-20 mg-mcg tablet 1 tab PO DAILY Qty: 84 3RF ferrous sulfate 325 mg (65 mg iron) tablet,delayed release (DR/EC) 325 mg PO DAILY Qty: 30 3RF Referrals Follow up/Referrals: Suha Wing DO [Staff Physician, [facility]] - See instructions Cheo Wing DO [Staff Physician, Family Practice] - See instructions Provider,Referral, [Primary Care Provider, Medical] - See instructions Activity Restrictions/Add. Instructions Additional Instructions/Restrictions: Please return to the emergency department with any worsening signs or symptoms, continue to take all your medication as prescribed. Please follow-up with PCP and [facility] in the upcoming days/weeks. Clinical Impressions Clinical Impression: Vaso vagal episode, Pre-syncope Instructions Patient Instructions: DI for Syncope in Adults (Fainting) Print Language Print Language: Bahamian Discharge ED Provider: Isidro French General Adult HPI <GLENNA Esquivel - Last Filed: 07/16/25 14:32> General Chief complaint: Dizziness Stated complaint: feeling like going to pass out, cramping. Time Seen by Provider: 07/16/25 13:17 Mode of Arrival: Ambulatory Source of Information: Patient and Relative Limitations: No Limitations History of Present Illness HPI narrative: 24-year-old A1, female approximately 2 months , presents the emergency department accompanied by her relative for a several hour of feeling like I was going to pass out , patient is currently asymptomatic, patient states she felt 2 or 3 pops , in her abdomen and lower perineal area describes it as cramping type pain, is now resolved, patient denies any fever chills chest pain, no shortness of breath, no nausea no vomiting, no current, presyncopal or syncopal event, no constipation no diarrhea no urinary type symptomatology, last menstrual period was last month, she is currently due for her current menstrual period, no vaginal bleeding no vaginal discharge, patient is a non-smoker, denies alcohol or drug use, triage vitals are notable for tachycardia otherwise unremarkable, other past medical history is consistent with carpal tunnel syndrome on the right, anxiety/depression. Patient recently seen a month ago in the emergency department for similar complaint, was diagnosed with anxiety,/panic attack, had full workup to include cardiac biomarkers and negative CTA chest. Please note that above description of symptoms, in this electronic medical record under categorization of recalled from ER triage doctor by RN are reflective of an initial nursing assessment, however, is not reflective of my full history and physical exam that was personally taken and clarified. Consequentially, this preceding description of symptoms, which may include the patient's categorized chief complaint in the EMR, do not reflect my personal clinical impression, and the ultimate description of history of present illness and patient stated complaints should be deferred to this section of the note. Unless stated otherwise or congruent with this section of the note, additional signs, symptoms, or incongruence should be interpreted as inaccurate with my clinical impression. Onset (ago): hour(s) Related Data Home Medications ?Medication ?Instructions ?Recorded ?Confirmed buspirone 15 mg tablet mg PO 06/16/25 07/06/25 propranolol 10 mg tablet mg PO 07/06/25 07/06/25 Previous Rx's ?Medication ?Instructions ?Recorded ferrous sulfate 325 mg (65 mg 325 mg PO DAILY #30 tabs 05/07/25 iron) tablet,delayed release levonorgestrel-ethinyl estradiol 1 tab PO DAILY #84 ta bs 07/06/25 0.1 mg-20 mcg tablet (Aviane) Allergies Allergy/AdvReac Type Severity Reaction Status Date / Time No Known Allergies Allergy Verified 07/06/25 11:19 [facility], [facility] <GLENNA Esquivel - Last Filed: 07/16/25 14:32> [facility]LY [facility], [facility] Disclaimer: The information contained in this section may have been updated after the patient was seen, as this information can be updated by other users. Medical History (Updated 07/16/25 @ 14:32 by GLENNA Esquivel) Carpal tunnel syndrome on right UTI (urinary tract infection) Spontaneous rupture of membranes Maternal obesity affecting , antepartum Rubella non-immune status, antepartum Anxiety disorder affecting , antepartum Acute blood loss anemia Condyloma acuminata of vulva in in third trimester Genital condyloma, female Acid reflux Obesity (BMI 35.0-39.9 without comorbidity) Anxiety Surgical History History of S/P section Family History Other No significant family history Social History Smoking Status: Current every day smoker alcohol intake: never substance use type: denies use current occupational status: unemployed Travel in the last 8 weeks?: None do you feel safe at home: Yes victim of physical abuse: No victim of emotional abuse: No victim of sexual abuse: No Have you lived/traveled outside [place] in past 30 days?: No Contact w/someone who lives/traveled outside US past 30 days?: No Exposure to someone with infectious disease in past 14 days?: No Do you have a fever (greater than 100.4 F or 38 C)?: No Have you tested positive for COVID-19?: No Exposed to someone with COVID-19 in past 14 days?: No Do you have a sore throat?: No Do you have a cough?: No Do you have any weakness?: No Do you have any diarrhea?: No Are you experiencing any unusual bleeding?: No Do you have any muscle aches/pain?: No Do you have any abdominal pain?: No Are you experiencing loss of taste or smell?: No Other Medical History Have you received the Flu Vaccine for this season: No Have you received the Pneumonia Vaccine: No <GLENNA Esquivel - Last Filed: 07/16/25 14:32> ROS Obtained: Yes All systems reviewed & no additional complaints except as documented Physical Exam <GLENNA Esquivel - Last Filed: 07/16/25 14:32> General General appearance: alert and in no apparent distress Head Head exam: atraumatic and normocephalic Eye Eye exam: Present PERRL and EOMI ENT ENT exam: Present mucous membranes moist Neck Neck exam: Present normal inspection Chest Chest inspection: Present normal inspection and symmetric chest wall rise Respiratory Respiratory exam: Present normal lung sounds bilaterally; Absent respiratory distress, wheezes or stridor Cardiovascular Cardiovascular exam: Present regular rate and normal rhythm Abdominal Exam Abdominal exam: Present soft; Absent tenderness, guarding, rebound or rigidity Extremities Exam Extremities exam: Present normal inspection Neurological Exam Neurological exam: Present alert and oriented X3 Psychiatric Psychiatric exam: Present normal affect Skin Skin exam: Present warm and dry Medical Decision Making <GLENNA Esquivel - Last Filed: 07/16/25 14:32> Medical Records Medical records reviewed: Yes I reviewed the patient's medical records. Screening: Per USPSTF and CDC recommendations, given the prevalence of disease in our region, it is our hospital?s policy to screen for HIV and viral Hepatitis for all patients aged 18 and over and those with ongoing risk factors. Timoteo Inquiry Pt receiving controlled substance: No Timoteo was queried for this patient: No Vital Signs: 07/16/25 13:17 07/16/25 13:20 07/16/25 13:32 Temperature 98.1 F Temperature Source Oral Pulse Rate 112 H 104 H Pulse Rate [Left Radial] 109 H Respiratory Rate 19 Blood Pressure 163/105 H 152/92 H Blood Pressure [Right Arm] 163/105 H Blood Pressure Mean [Right Arm] 124 02 Sat by Pulse Oximetry 97 98 99 07/16/25 13:41 07/16/25 14:00 07/16/25 14:39 Temperature 98.0 F Temperature Source Pulse Rate 88 86 82 Pulse Rate [Left Radial] Respiratory Rate 13 Blood Pressure 120/67 117/79 117/79 Blood Pressure [Right Arm] Blood Pressure Mean [Right Arm] 02 Sat by Pulse Oximetry 99 97 Lab Data Lab results reviewed: Yes I reviewed the patient's lab results. Lab Results 07/16/25 13:23: WBC 8.2, RBC 4.88, Hgb 14.1, Hct 41.3, MCV 84.6, MCH 28.9, MCHC 34.1, RDW 14.4, Plt Count 428 H, MPV 11.2 H, Neut % (Auto) 69.0, Lymph % (Auto) 21.3, [place] % (Auto) 8.7, Eos % (Auto) 0.5, Baso % (Auto) 0.4, Neut # (Auto) 5.6, Lymph # (Auto) 1.7, [place] # (Auto) 0.7, Eos # (Auto) 0.0, Baso # (Auto) 0.0, Sodium 137, Potassium 4.0, Chloride 108 H, Carbon Dioxide 22, Anion Gap 11.0, BUN 9, Creatinine 0.80, Estimated Creat Clear 175, Estimated GFR 88, Est GFR ( Amer) 107, Glucose 102 H, Calcium 9.5, Total Bilirubin 0.4, AST 39 H, ALT 27, Alkaline Phosphatase 77, Troponin I < 0.01, NT-Pro-B Natriuret Pep 34.2, Total Protein 7.7, Albumin 4.5, Globulin 3.2, Albumin/Globulin Ratio 1.4, Lipase 124 07/16/25 13:38: Urine Color Yellow, Urine Appearance Clear, Urine pH 7.0, Ur Specific [place] 1.020, Urine Protein Negative, Urine Glucose (UA) Negative, Urine Ketones Negative, Urine Blood Negative, Urine Nitrate Negative, Urine Bilirubin Negative, Urine Urobilinogen 0.2, Ur Leukocyte Esterase Negative, Urine RBC None, Urine WBC Occasional, Ur Squamous Epith Cells 3-5, Urine Bacteria Trace, Urine HCG, Qual Negative 07/16/25 14:06: Lactate 1.7 07/16/25 13:23 07/16/25 13:23 Orders (Tests/Meds): ORDERS Category Date Time Status Complete Blood Count Auto Diff Stat Lab 07/16/25 13:23 Completed Comprehensive Metabolic Panel Stat Lab 07/16/25 13:23 Completed Lactic Acid Stat Lab 07/16/25 14:06 Completed Lipase Stat Lab 07/16/25 13:23 Completed NT Pro Brain Natriuretic Pep. Stat Lab 07/16/25 13:23 Completed Troponin I Stat Lab 07/16/25 13:23 Completed UA [Urinalysis and Microscopic] Stat Lab 07/16/25 13:38 Completed Urine , HCG Qual. Stat Lab 07/16/25 13:38 Completed Medical Decision Narrative: 24-year-old female presents the emergency department with abdominal cramping, near syncope, differential diagnose include but not limited to, cardiac arrhythmia, electrolyte disturbance, ovarian cyst, acute UTI, acute pyelonephritis, anxiety reaction, panic attack, gastritis, ileitis, among others I discussed patient case with attending physician Dr. French he saw and examined the patient as well Will obtain basic laboratory studies, lactic acid, lipase level, proBNP, troponin, UA, urine hCG. Urine hCG negative Thrombocytosis 428, otherwise unremarkable CBC CMP unremarkable, troponin proBNP within normal limits, lipase is normalized. Reexamination of the patient at approximately 2:25 PM, patient is hemodynamically stable, she has no acute complaints, discussed all results of her laboratory studies with patient and family member at the bedside, will forego urinalysis at this time as patient not have any urinary type symptomatology, believe this is more likely a anxiety versus vasovagal syncope reaction as patient tells both and attending physician that she was using the bathroom , when she had these episodes, describes it more as bubbling , could be constipation versus gas pain, she also states that she feels like she is going to pass out when laughing really hard . Patient and to follow-up with PCP for this. Patient and family voiced understanding and agreement with the current treatment plan/discharge plan. Strict ED return precautions were given. <Isidro French, DO - Last Filed: 07/16/25 17:20> Vital Signs: 07/16/25 13:17 07/16/25 13:20 07/16/25 13:32 Temperature 98.1 F Temperature Source Oral Pulse Rate 112 H 104 H Pulse Rate [Left Radial] 109 H Respiratory Rate 19 Blood Pressure 163/105 H 152/92 H Blood Pressure [Right Arm] 163/105 H Blood Pressure Mean [Right Arm] 124 02 Sat by Pulse Oximetry 97 98 99 07/16/25 13:41 07/16/25 14:00 07/16/25 14:39 Temperature 98.0 F Temperature Source Pulse Rate 88 86 82 Pulse Rate [Left Radial] Respiratory Rate 13 Blood Pressure 120/67 117/79 117/79 Blood Pressure [Right Arm] Blood Pressure Mean [Right Arm] 02 Sat by Pulse Oximetry 99 97 Lab Data Lab Results 07/16/25 13:23: WBC 8.2, RBC 4.88, Hgb 14.1, Hct 41.3, MCV 84.6, MCH 28.9, MCHC 34.1, RDW 14.4, Plt Count 428 H, MPV 11.2 H, Neut % (Auto) 69.0, Lymph % (Auto) 21.3, [place] % (Auto) 8.7, Eos % (Auto) 0.5, Baso % (Auto) 0.4, Neut # (Auto) 5.6, Lymph # (Auto) 1.7, [place] # (Auto) 0.7, Eos # (Auto) 0.0, Baso # (Auto) 0.0, Sodium 137, Potassium 4.0, Chloride 108 H, Carbon Dioxide 22, Anion Gap 11.0, BUN 9, Creatinine 0.80, Estimated Creat Clear 175, Estimated GFR 88, Est GFR ( Amer) 107, Glucose 102 H, Calcium 9.5, Total Bilirubin 0.4, AST 39 H, ALT 27, Alkaline Phosphatase 77, Troponin I < 0.01, NT-Pro-B Natriuret Pep 34.2, Total Protein 7.7, Albumin 4.5, Globulin 3.2, Albumin/Globulin Ratio 1.4, Lipase 124 07/16/25 13:38: Urine Color Yellow, Urine Appearance Clear, Urine pH 7.0, Ur Specific [place] 1.020, Urine Protein Negative, Urine Glucose (UA) Negative, Urine Ketones Negative, Urine Blood Negative, Urine Nitrate Negative, Urine Bilirubin Negative, Urine Urobilinogen 0.2, Ur Leukocyte Esterase Negative, Urine RBC None, Urine WBC Occasional, Ur Squamous Epith Cells 3-5, Urine Bacteria Trace, Urine HCG, Qual Negative 07/16/25 14:06: Lactate 1.7 Orders (Tests/Meds): ORDERS Category Date Time Status Complete Blood Count Auto Diff Stat Lab 07/16/25 13:23 Completed Comprehensive Metabolic Panel Stat Lab 07/16/25 13:23 Completed Lactic Acid Stat Lab 07/16/25 14:06 Completed Lipase Stat Lab 07/16/25 13:23 Completed NT Pro Brain Natriuretic Pep. Stat Lab 07/16/25 13:23 Completed Troponin I Stat Lab 07/16/25 13:23 Completed UA [Urinalysis and Microscopic] Stat Lab 07/16/25 13:38 Completed Urine , HCG Qual. Stat Lab 07/16/25 13:38 Completed ECG Data Tracing #1: I reviewed this ECG and interpreted as documented below: EKG personally interpreted by me demonstrates normal sinus rhythm with a rate of 81 bpm, normal axis, no DE prolongation, narrow QRS, no QTc prolongation. No ST elevation or depression. No overt signs of ischemia or arrhythmia. Specifically, no WPW, AV block, Brugada syndrome, or long QTc. No evidence of epsilon waves or LVH. Critical Care <GLENNA Esquivel - Last Filed: 07/16/25 14:32> Critical Care Time Critical Care Time: No
[2025-07-16 13:32] VITALS: BP 163/105; PULSE 109; RESP 19; TEMP 36.7; O2SAT 99; BMI 41.1
[2025-07-16 13:41] VITALS: BP 120/67; PULSE 88; O2SAT 99
[2025-07-16 13:44] LABS: Microscopic, Urine URINE MICROSCOPIC (MICROSCOPIC)
[2025-07-16 13:49] LABS: Bilirubin,Urine Negative (Negative); Color,Urine YELLOW (Yellow); Glucose,Urine (UA) Negative (Negative); Ketones,Urine Negative (Negative); Leukocyte Esterase,Urine Negative (Negative); PH,Urine 7.0 (5.0-8.5); Protein,Urine Negative (Negative); Specific Gravity, Urine 1.020 (1.005-1.030); Urobilinogen,Urine 0.2 EU/dl (0.2)
[2025-07-16 14:00] VITALS: BP 117/79; PULSE 86; O2SAT 97
[2025-07-16 14:01] LABS: Urine Pregnancy, HCG Qual. Negative (Negative)
[2025-07-16 14:05] LABS: Albumin Level 4.5 g/dl (3.5-5.0); Chloride 108 mmol/L (98-107)
[2025-07-16 14:06] LABS: Potassium 4.0 mmoL/L (3.5-5.1); Sodium 137 mmol/L (136-145)
[2025-07-16 14:07] LABS: Hematocrit 41.3 % (37.0-47.0); Hemoglobin 14.1 g/dL (12.2-16.2); Immature Granulocytes % 0.1 %; Mean Corpuscular HGB Conc 34.1 g/dL (31.8-35.4); Mean Corpuscular Hemoglobin 28.9 pg (27.0-31.2); Mean Corpuscular Volume 84.6 fl (81-99); Nucleated Red Blood Cells % 0 %; Platelet Count 428 K/mm3 (142-424); Red Blood Count 4.88 M/mm3 (4.20-5.40); Red Cell Distribution Width-SD 44.1 fL; White Blood Count 8.2 K/mm3 (4.8-10.8)
[2025-07-16 14:08] LABS: Alanine Aminotransferase 27 U/L (12-78); Alkaline Phosphatase 77 U/L (38-126); Anion Gap 11.0 mEq/L (5-15); Aspartate Amino Transferase 39 U/L (14-36); Bilirubin,Total 0.4 mg/dl (0.2-1.3); Blood Urea Nitrogen 9 mg/dl (7-17); Carbon Dioxide 22 mmol/L (22.0-30.0); Creatinine Clearance Estimated 175 mL/min (50-200); Creatinine,Serum 0.80 mg/dl (0.52-1.04); Estimated Glomerular Filt Rate 88 ml/min (>60); GFR (African American) 107 ML/MIN (>60); Lipase 124 U/L (23-300)
[2025-07-16 14:09] LABS: Albumin/Globulin Ratio 1.4 (1.1-1.8); Calcium 9.5 mg/dl (8.4-10.2); Globulin 3.2 g/dL (1.3-3.2); Glucose 102 mg/dl (74-100); Total Protein,Serum 7.7 g/dl (6.3-8.2)
[2025-07-16 14:17] LABS: NT Pro Brain Natriuretic Pep. 34.2 pg/mL (0-125)
[2025-07-16 14:25] LABS: Troponin I < 0.01 ng/ml (0.00-0.034)
[2025-07-16 14:39] VITALS: BP 117/79; PULSE 82; RESP 13; TEMP 36.7; O2SAT 96
[2025-07-16 14:49] LABS: Bacteria,Urine Trace /lpf; WBC,Urine Occasional #/hpf (0-3)
== END 2025-07-16 14:40 | disposition home or self-care (01) ==
PROVIDERS: Physician Assistant; Emergency Provider Student in an Organized Health Care Education/Training Program
DX: R55 Syncope and collapse (principal); F17.210 Nicotine dependence, cigarettes, uncomplicated
CPT/HCPCS: 80053; 81001; 81025; 83605; 83690; 83880; 84484; 85025; 93005; 99284